=== PATIENT | female | born 1965 | race Caucasian/White ===

== ENCOUNTER 2023-06-24 11:22 | Outpatient (AMB) | payer OTHER, SELFPAY ==
--- NOTE | 2023-06-24 11:33 | MHC.PC.OV ---
Vital Signs 06/24/23 11:34 Height 5 ft 6 in Weight 200 lb 2 oz BMI 32.3 BP 120/80 Blood Pressure Location Lt brachial Position Sitting Pulse 98 Pulse Source Pulse Oximeter Pulse Oximetry (%) 96 Oxygen Delivery Method Room Air Intake Visit Reasons: ? [place] [facility] Intake Note: Patient is here with question of pinkeye since this morning, her grandchildren have it. She would like a work note. Medication List - Last Reconciled 06/24/23 by Aakash Azar MD atorvastatin 10 mg PO DAILY lisinopril-hydrochlorothiazide 20-12.5 mg 1 tab PO DAILY metformin 500 mg PO BID Tobacco use date assessed: 06/24/23 Dental Screening Dental Screen Date: 06/24/23 Did you have a dental visit in the last 12 months?: Yes Did you have a dental problem in the last 6 months where you did not have access to dental care?: No Was dental information given to patient?: Patient has dentist HPI ? [place] [facility] HPI Details 57 y/o female presents today with ? pink eye. She reports burning sensation, crusting bilateral eyes. She reports her grandchildren did have pink eye. 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 Cognitive needs: No Hearing needs: No Vision needs: No Review of Systems Const Denies chills, Denies fatigue, Denies fever(s), Denies headache(s) and Denies weakness ENT Denies dizziness and Denies headache(s) Card Denies dyspnea Resp Denies cough, Denies dyspnea, Denies wheezing and Denies other (shortness of breath) Musc Denies numbness and Denies tingling Neuro Denies dizziness, Denies headache(s), Denies numbness, Denies tingling and Denies weakness Psych Denies anxiety and Denies depression Endo Denies fatigue Aller/Immun Denies wheezing Physical exam (Primary Care) Vital Signs: Last Vital Signs Pulse 98 06/24/23 11:34 BP 120/80 06/24/23 11:34 Pulse Ox 96 06/24/23 11:34 Oxygen Delivery Method Room Air 06/24/23 11:34 BMI result Body Mass Index 32.3 Tobacco/Smoking Status: Tobacco use Status Tobacco use date assessed 06/24/23 06/24/23 11:42 Patient Tobacco Use Status Current everyday Tobacco 06/24/23 11:42 e-Cigarette/Vaping Use Never Used 06/24/23 11:42 Const General: well developed; No acute distress Nutritional Appearance: well nourished Orientation/consciousness: patient oriented x3 HENMT Other: mild scleral erythema Head: Yes normocephalic and Yes atraumatic Eyes General: appearance normal, both eyes and all related structures Pupils: Equal, round and reactive pupils present EOM: EOMs intact bilaterally Resp Effort & Inspection: normal respiratory effort Neuro General: patient oriented x3 and gait normal Cranial nerves: Yes Equal, round and reactive pupils present Psych Affect: normal affect Assessment and Plan Assessment & Plan (1) Conjunctivitis: Code(s): H10.9 - Unspecified conjunctivitis Plan: Script?for?ofloxacin?sent Can?use?warm?compresses?for?crusting?in?the?morning.??Cool?compresses?during?the?day?for?irritation?or?itch Avoid?touching?eyes?with?bare?hands?and?wash?hands?frequently. Works?with?the?[facility]?and?I?have?given?her?a?script?for?the?next?2?days Medications: New ofloxacin 0.3% 2 drps ophthalmic (eye) QID 7 days 5 mL 0RF Coding Level of Care Code New Pt Level 3 (24327) Diagnoses Conjunctivitis H10.9
[2023-06-24 11:34] VITALS: BP 120/80; PULSE 98; O2SAT 96; BMI 32.3
== END 2023-06-24 11:48 | disposition home or self-care (01) ==
PROVIDERS: PCP Family Medicine; Visit Provider Family Medicine
DX: H10.9 Unspecified conjunctivitis (principal)
CPT/HCPCS: 99203

== ENCOUNTER 2023-07-16 14:55 | Outpatient (AMB) | payer OTHER, SELFPAY ==
[2023-07-16 15:19] VITALS: BP 122/78; PULSE 95; O2SAT 96; BMI 32.5
--- NOTE | 2023-07-16 15:19 | MHC.PC.OV ---
Vital Signs 07/16/23 15:19 Height 5 ft 6 in Weight 201 lb 8 oz BMI 32.5 BP 122/78 Blood Pressure Location Lt brachial Position Sitting Pulse 95 Pulse Source Pulse Oximeter Pulse Oximetry (%) 96 Oxygen Delivery Method Room Air Intake Visit Reasons: [employer] PERSON/Diabetes Intake Note: Patient is here as a new patient, with dx of diabetes. Allergies No Known Allergies Allergy (Verified 07/16/23 15:21) Tobacco use date assessed: 07/16/23 Dental Screening Dental Screen Date: 06/24/23 HPI [employer] PERSON/Diabetes HPI Details New patient Prior PCP:? Carmelita Franklin Last office visit/CPE: > 1 yr Acute issue(s): Diabetes -A1c today 07/16/23 5.8%. PMHx: HTN, DM2, HLD, Asthma, SurgHx: L knee replacement. Partial colon resection. Tubal lig. FHx: Mom: DM 1, HLD, HTN. Siblings DM SocHx: 1/2 ppd, EtOH: Socially. 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 1. Little interest or pleasure in doing things: not at all 2. Feeling down, depressed, or hopeless: not at all 3. Trouble falling or staying asleep, or sleeping too much: not at all 4. Feeling tired or having little energy: not at all 5. Poor appetite or overeating: not at all 6. Feeling bad about yourself - or that you are a failure or have let yourself or your family down: not at all 7. Trouble concentrating on things, such as reading the newspaper or watching television: not at all 8. Moving or speaking so slowly that other people could have noticed. Or the opposite - being so fidgety or restless that you have been moving around a lot more than usual: not at all 9. Thoughts that you would be better off or of hurting yourself in some way: not at all Total score: 0 Depression Screening Interpretation: Negative Depression Screening Done: Yes 03658 - PHQ-9 Billing: Yes Source: Developed by Drs. Joseph Bashir, Erika Schroeder, Fritz Heredia and colleagues, with an educational jalil from [employer]. AUDIT C Alcohol Use Questionnaire (AUDIT-C) 1. How often do you have a drink containing alcohol?: 2-3 times a week 2. How many drinks containing alcohol do you have on a typical day when you are drinking?: 3 or 4 3. How often do you have six or more drinks on one occasion?: Weekly Total Score: 7 FRANCESCO-7 AMB Questionnaire FRANCESCO-7 Date FRANCESCO - 7 assessed: 07/16/23 Feeling nervous, anxious, or on edge: 0 = Not at all Not being able to stop or control worryin = Not at all Worrying too much about different things: 0 = Not at all Trouble relaxin = Not at all Being so restless that it is hard to sit still: 0 = Not at all Becoming easily annoyed or irritable: 0 = Not at all Feeling afraid as if something awful might happen: 0 = Not at all Total FRANCESCO-7 score (0-4 normal; 5-9 mild; 10-14 moderate; 15-21 severe): 0 Source: Developed by Drs. Joseph Bashir, Erika Schroeder, Fritz Heredia and colleagues, with an educational jalil from [employer]. FRANCESCO-7 Assessment Billing FRANCESCO-7 Assessment Tool: FRANCESCO-7 Assessment 03856 Physical exam (Primary Care) Vital Signs: Last Vital Signs Pulse 95 07/16/23 15:19 BP 122/78 07/16/23 15:19 Pulse Ox 96 07/16/23 15:19 Oxygen Delivery Method Room Air 07/16/23 15:19 BMI result Body Mass Index 32.5 Tobacco/Smoking Status: Tobacco use Status Tobacco use date assessed 07/16/23 07/16/23 15:33 Patient Tobacco Use Status Current everyday Tobacco 07/16/23 15:19 e-Cigarette/Vaping Use Never Used 07/16/23 15:19 PHQ-9: PHQ-9 Score PHQ-9: Total score 0 07/16/23 15:33 Depression Screening Interpretation: Negative Assessment and Plan Assessment & Plan (1) Diabetes: Code(s): E11.9 - Type 2 diabetes mellitus without complications Plan: A1c?5.8%?is?good?control.??Goal?is?less?than?7.0% She?has?been?out?referral?medication?but?her?son?had?been?on?metformin?and?no?longer?needs?it?due?to?significant?weight?loss?so?she?has?been?using?that. Will?get?her?her?own?script?of?metformin?500?mg?b.i.d. Continue?to?work?at?weight?loss We?will?follow (2) Hypertension: Code(s): I10 - Essential (primary) hypertension Plan: Blood?pressure?is?well?controlled?despite?not?being?on?any?medication She?has?a?blood?pressure?monitor?at?home?and?she?will let?me?know?if?blood?pressures?are?rising (3) Hyperlipidemia: Code(s): E78.5 - Hyperlipidemia, unspecified Plan: She?is?on?atorvastatin?10?mg?daily?though?she?has?been?out?of?the?medication. Check?lipid Resume?atorvastatin (4) Smoker: Code(s): F17.200 - Nicotine dependence, unspecified, uncomplicated Plan: Smoking?1/2?pack?per?day. She?is?pre?contemplative?but?I?encouraged?cessation (5) Asthma: Code(s): J45.909 - Unspecified asthma, uncomplicated Plan: Significant?diffuse?wheezing?and?she?has?been?out?of?albuterol?and?Flovent. Will?give?her?a?script?for?albuterol?rescue?inhaler?and?I?am?starting?Symbicort. (6) Laboratory exam ordered as part of routine general medical examination: Code(s): Z00.00 - Encounter for general adult medical examination without abnormal findings Plan: 57-year-old?female?presents?to?establish?care. Check?lab Orders: Orders Microalbumin, Random (w Creat) Today I10 - Essential (primary) hypertension UA and rflx microscopic Today Z00.00 - Encounter for general adult medical examination without abnormal findings Comprehensive [place]. Panel Fast Today Z00.00 - Encounter for general adult medical examination without abnormal findings Lipid Panel Today Z00.00 - Encounter for general adult medical examination without abnormal findings TSH reflex Free T4 Today Z00.00 - Encounter for general adult medical examination without abnormal findings Medications: New budesonide-formoterol 160-4.5 mcg/actuation (Symbicort) 1 inh inhalation BID 30 days 10.2 grams 3RF Changed From atorvastatin 10 mg PO DAILY To atorvastatin 10 mg PO DAILY 90 days 90 tabs 3RF From metformin 500 mg PO BID To metformin 500 mg PO BID 90 days 180 tabs 3RF Coding Level of Care Code New Pt Level 3 (71113) Diagnoses Diabetes E11.9 Hypertension I10 Hyperlipidemia E78.5 Smoker F17.200 Asthma J45.909 Laboratory exam ordered as part of routine general medical examination Z00.00 Additional Codes FRANCESCO-7 Assessment Billing - FRANCESCO-7 Assessment Tool: FRANCESCO-7 Assessment [id number] ([id number])
== END 2023-07-16 16:15 | disposition home or self-care (01) ==
PROVIDERS: PCP Family Medicine; Visit Provider Family Medicine
DX: E11.69 Type 2 diabetes mellitus with other specified complication (principal); I10 Essential (primary) hypertension; E78.5 Hyperlipidemia, unspecified; F17.210 Nicotine dependence, cigarettes, uncomplicated; J45.909 Unspecified asthma, uncomplicated
CPT/HCPCS: 83036; 99213

== ENCOUNTER 2023-09-22 08:19 | Outpatient (REF) | payer OTHER, SELFPAY ==
[2023-09-22 11:24] LABS: Appearance Urine Cloudy; Color Urine Yellow; Glucose Urine UA Negative (Negative); Leukocyte Esterase Urine Moderate (2+) (Negative); Nitrite Urine Negative (Negative); UMIC TRIGGER UA YES; Urine Blood Large (3+) (Negative); Urine Ketones Negative (Negative); Urine Protein Trace mg/dL (Neg-Trace)
[2023-09-22 11:34] LABS: Bacteria Urine 2+ (None Seen); Hyaline Casts Urine 0-2 /LPF (0-2); Squamous Epithelial Cell Urine >20 /HPF (0-2); WBC Urine 21-50 /HPF (0-5)
[2023-09-22 11:47] LABS: Alanine Aminotransferase 58 U/L (0-31); Alkaline Phosphatase 52 U/L (39-117); Anion Gap 15 (12-20); Aspartate Amino Transferase 34 U/L (5-31); Bilirubin Total 0.8 mg/dL (0.0-1.0); Blood Urea Nitrogen 21 mg/dL (9-16); Calcium 8.8 mg/dL (8.4-10.2); Carbon Dioxide 26 mmol/L (22-29); Chloride 103 mmol/L (96-108); Cholesterol 158 mg/dL (<200); Estimated Glomerular Filt Rate > 60; Glucose Fasting 131 mg/dL (60-99); HDL Cholesterol 57 mg/dL (>40); LDL Cholesterol Calculated 68 mg/dL (<100); Potassium 3.8 mmol/L (3.3-5.1); Sodium 140 mmol/L (135-145); Total Protein 6.9 g/dL (6.5-8.0); Triglycerides 165 mg/dL (<150)
[2023-09-22 11:59] LABS: TSH reflex Free T4 1.47 uIU/mL (0.32-4.0)
[2023-09-22 12:20] LABS: Creatinine Urine 249.06 mg/dL; Microalbum/Creatinine Ratio Ur 21.2 ug/mg cr (<30)
== END 2023-09-22 08:20 | disposition home or self-care (01) ==
LOC: HO.WFDLDS 08:19
PROVIDERS: Visit Provider Family Medicine
DX: Z00.00 Encounter for general adult medical examination without abnormal findings (principal); I10 Essential (primary) hypertension
CPT/HCPCS: 36415; 80053; 80061; 81001; 82043; 82570; 84443

== ENCOUNTER 2023-10-06 08:34 | Outpatient (AMB) | payer OTHER, SELFPAY ==
--- NOTE | 2023-10-06 08:35 | A.OFFPC_ITS ---
Vital Signs 10/06/23 08:37 Height 5 ft 6 in Weight 204 lb 6 oz BMI 33.0 BP 128/86 Blood Pressure Location Rt brachial Position Sitting Pulse 83 Pulse Source Pulse Oximeter Pulse Oximetry (%) 96 Oxygen Delivery Method Room Air Intake Visit Reasons: CPE with f/u labs and health maint Intake Note: Divya is a 58 year old female who presents to the office today for a CPE with f/u labs and health maintenance. Pt states she still thinks she has a UTI because she has burning with urination and urgency. Allergies No Known Allergies Allergy (Verified 10/06/23 08:39) Medication List - Last Reconciled 10/06/23 by Aakash Azar MD albuterol sulfate 90 mcg/actuation 2 puffs inhalation Q6H PRN atorvastatin 10 mg PO DAILY 90 days blood sugar diagnostic (FreeStyle Lite Strips) DX: E11.9, test blood sugar 2 times a day, 90 days budesonide-formoterol 160-4.5 mcg/actuation (Symbicort) 1 inh inhalation BID 30 days lisinopril-hydrochlorothiazide 20-12.5 mg 1 tab PO DAILY metformin 500 mg PO BID 90 days nitrofurantoin monohyd/m-cryst 100 mg (Macrobid) 100 mg PO BID 7 days Tobacco use date assessed: 10/06/23 Dental Screening Dental Screen Date: 06/24/23 Did you have a dental visit in the last 12 months?: Yes Did you have a dental problem in the last 6 months where you did not have access to dental care?: No Was dental information given to patient?: Patient has dentist HPI CPE with f/u labs and health maint HPI Details 58 y/o female presents for a CPE with f/ u labs and health maintenance. Labs were drawn 09/22/23. Reviewed labs with pt. Elevated liver enzymes - AST 34, ALT 58. She notes she has been told she had fatty liver disorder before. Triglycerides 165. TC 158. LDL 68. HDL 57. TSH 1.47. 2+ urine bacteria seen. 3+ urine blood. Elevated fasting glucose of 131 and last A1c 07/16/23 5.8%. She is on metformin 500mg b.i.d. Pt reports urinary symptoms. Blood pressure today 128/86. She is on lisinopril-hydrochlorothiazide 20-12.5mg daily. Pt reports hearing changes. 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 1. Little interest or pleasure in doing things: not at all 2. Feeling down, depressed, or hopeless: not at all 3. Trouble falling or staying asleep, or sleeping too much: not at all 4. Feeling tired or having little energy: not at all 5. Poor appetite or overeating: not at all 6. Feeling bad about yourself - or that you are a failure or have let yourself or your family down: not at all 7. Trouble concentrating on things, such as reading the newspaper or watching television: not at all 8. Moving or speaking so slowly that other people could have noticed. Or the opposite - being so fidgety or restless that you have been moving around a lot more than usual: not at all 9. Thoughts that you would be better off or of hurting yourself in some way: not at all Total score: 0 Depression Screening Interpretation: Negative Depression Screening Done: Yes 13736 - PHQ-9 Billing: Yes Source: Developed by Drs. Joseph Bashir, Erika Schroeder, Fritz Heredia and colleagues, with an educational jalil from [employer]. Thrive Questionnaire Date Thrive assessed: 10/06/23 I am a: Patient What is your living situation today?: I have a steady place to live Within the past 12 months, did the food you bought not last and you didn't have the money to get more?: Never true Within the past 12 months, did you worry whether your food would run out before you got money to buy more?: Never true Do you have trouble paying for medicines?: No Do you have trouble getting transportation to medical appointments?: No Do you have trouble paying your heating and electricity bill?: No Do you have trouble taking care of your child, family member or friend?: No Do you have trouble with day-to-day activities such as bathing, preparing meals, shopping, managing finances, etc.?: No Are you currently unemployed and looking for a job?: No Are you interested in more education?: No THRIVE Score: 0 AUDIT C Alcohol Use Questionnaire (AUDIT-C) 1. How often do you have a drink containing alcohol?: 2-3 times a week 2. How many drinks containing alcohol do you have on a typical day when you are drinking?: 3 or 4 3. How often do you have six or more drinks on one occasion?: Weekly Total Score: 7 FRANCESCO-7 AMB Questionnaire FRANCESCO-7 Date FRANCESCO - 7 assessed: 07/16/23 Feeling nervous, anxious, or on edge: 0 = Not at all Not being able to stop or control worryin = Not at all Worrying too much about different things: 0 = Not at all Trouble relaxin = Not at all Being so restless that it is hard to sit still: 0 = Not at all Becoming easily annoyed or irritable: 0 = Not at all Feeling afraid as if something awful might happen: 0 = Not at all Total FRANCESCO-7 score (0-4 normal; 5-9 mild; 10-14 moderate; 15-21 severe): 0 Source: Developed by Drs. Joseph Bashir, Erika Schroeder, Fritz Heredia and colleagues, with an educational jalil from [employer]. FRANCESCO-7 Assessment Billing FRANCESCO-7 Assessment Tool: FRANCESCO-7 Assessment 03045 Review of Systems Const Denies chills, Denies fatigue, Denies fever(s), Denies headache(s) and Denies weakness Eyes Denies change in vision ENT Denies dizziness, Denies headache(s), Denies hearing loss, Denies nasal congestion, Denies sinus pain, Denies sinus pressure and Denies sore throat Card Denies chest pain, Denies lightheadedness, Denies dyspnea and Denies other (palpitations) Resp Denies cough, Denies dyspnea and Denies wheezing GI Denies abdominal pain, Denies melena, Denies hematochezia, Denies change in bowel habits, Denies dyspepsia and Denies nausea Denies hematuria and Denies dysuria Musc Denies abnormal gait, Denies myalgias, Denies arthralgias, Denies numbness and Denies tingling Skin/Breast Denies rash, Denies unusual bruising and Denies wounds Neuro Denies abnormal gait, Denies dizziness, Denies headache(s), Denies memory loss, Denies numbness, Denies Sensory deficit (Neuro), Denies tingling and Denies weakness Psych Denies anxiety, Denies depression and Denies memory loss Endo Denies cold intolerance, Denies fatigue, Denies heat intolerance, Denies polydipsia and Denies polyuria Ramos/Lymph Denies easy bleeding and Denies easy bruising Aller/Immun Denies wheezing Physical exam (Primary Care) Vital Signs: Last Vital Signs Pulse 83 10/06/23 08:37 BP 128/86 10/06/23 08:37 Pulse Ox 96 10/06/23 08:37 Oxygen Delivery Method Room Air 10/06/23 08:37 BMI result Body Mass Index 33.0 Tobacco/Smoking Status: Tobacco use Status Tobacco use date assessed 10/06/23 10/06/23 08:42 Patient Tobacco Use Status Current everyday Tobacco 10/06/23 08:35 e-Cigarette/Vaping Use Never Used 10/06/23 08:35 PHQ-9: PHQ-9 Score PHQ-9: Total score 0 10/06/23 08:53 Depression Screening Interpretation: Negative Thrive Assessment: Date of Thrive Assessment Date Thrive assessed 10/06/23 10/06/23 08:42 Const General: no acute distress, well developed, alert and awake Nutritional Appearance: well nourished Orientation/consciousness: patient oriented x3 HENMT Head: Yes normocephalic and Yes atraumatic Ears: hearing grossly normal bilaterally and TM's normal bilaterally General nose exam: Normal external nose present and Normal nares present Mouth: Normal oral and palatal mucosa present and moist mucous membranes Teeth and gingiva: dentition normal Throat: Yes posterior oropharynx normal Eyes General: appearance normal, both eyes and all related structures Pupils: Equal, round and reactive pupils present and Pupil accommodation reflex normal EOM: EOMs intact bilaterally Neck Neck: Yes normal visual inspection, Yes no lymphadenopathy and Yes trachea midline Thyroid: Thyroid normal Carotids: no bruits Lymphatic: no lymphadenopathy noted Chest Chest palpation & inspection: normal inspection of the chest Resp Effort & Inspection: normal respiratory effort Auscultation: clear to auscultation bilaterally Cardio Rate: regular rate Rhythm: regular rhythm Heart sounds: S1 normal heart sound present, S2 normal heart sound present, no gallops, no murmurs and no rubs Bruits: no abdominal aortic bruits and no carotid bruits GI Other: Ventral abdominal mass at level of umbillicus with mild impulse at valsalva Palpation (GI): No Abdominal aortic bruit present, Soft to palpation, nontender, No hepatosplenomegaly present and No Rebound tenderness present Auscultation: normal bowel sounds General: Yes no CVA tenderness Back/Spine/Pelvis Back: no CVA tenderness Cervical Spine: cervical ROM normal and No Cervical spine tenderness Thoracic/Lumbar Spine: thoraco-lumbar ROM normal, No pain with thoraco-lumbar ROM, No thoracic spinal tenderness and No lumbar spinal tenderness Skin Lesions: no lesions Rashes: no rashes Trauma: no lacerations or abrasions Wounds: no wounds Nails: normal Neuro General: patient oriented x3 Cranial nerves: Yes Equal, round and reactive pupils present Cognition (Neuro): normal cognition Gait exam (Neuro): Normal gait present Motor exam (neuro): 5/5 motor strength present throughout Sensory Exam: No Sensory deficit (Neuro) Deep tendon reflexes (DTR's): Right patellar reflex intensity grade: 2+ and Left patellar reflex intensity grade: 2+ Extrem General: Yes normal to inspection and No edema Psych Appearance: grossly normal Affect: normal affect Attitude: cooperative Thought process: Normal thought process present Results AMB Urinalysis, Automated UA Leukoctes 125 Goldie/uL Last Edit by Santa Pal CMA on 10/06/23 08:56 UA Nitrite Negative Last Edit by Santa Pal CMA on 10/06/23 08:56 UA Urobilinogen 0 mg/dL Last Edit by Santa Pal CMA on 10/06/23 08:56 UA Protein 15 mg/dL Last Edit by Santa Pal CMA on 10/06/23 08:56 UA pH 6.0 Last Edit by Santa Pal CMA on 10/06/23 08:56 UA Blood 0 Mitesh/uL Last Edit by Santa Pal CMA on 10/06/23 08:56 UA Specific [place] 1.025 Last Edit by Santa Pal CMA on 10/06/23 08:56 UA Ketone Positive Last Edit by Santa Pal CMA on 10/06/23 08:56 UA Bilirubin 1 mg/dL Last Edit by Santa Pal CMA on 10/06/23 08:56 UA Glucose 0 mg/dL Last Edit by Santa Pal CMA on 10/06/23 08:56 Results Reviewed Results Reviewed: Laboratory Last Values Urine pH (Auto) 6.0 10/06/23 08:54 Specific [place] (Auto) 1.025 10/06/23 08:54 Urine Protein (Auto) 15 mg/dL 10/06/23 08:54 Glucose (UA)(Auto) 0 mg/dL 10/06/23 08:54 Urine Ketones (Auto) Positive 10/06/23 08:54 Urine Blood (Auto) 0 Mitesh/uL 10/06/23 08:54 Urine Nitrite (Auto) Negative 10/06/23 08:54 Urine Bilirubin (Auto) 1 mg/dL 10/06/23 08:54 Urine Urobilinogen (Auto) 0 mg/dL 10/06/23 08:54 Leukocyte Esterase (Auto) 125 Goldie/uL 10/06/23 08:54 Assessment and Plan Assessment & Plan (1) Adult general medical exam: Code(s): Z00.00 - Encounter for general adult medical examination without abnormal findings Plan: 58-year-old?female?presents?for?complete?physical?exam (2) Diabetes: Code(s): E11.9 - Type 2 diabetes mellitus without complications Plan: A1c?at?last?check?showed?good?control. Morning?blood?sugar?shows?ongoing?control Continue?metformin?as?prescribed Encouraged?weight?loss (3) Elevated liver enzymes: Code(s): R74.8 - Abnormal levels of other serum enzymes Plan: Mildly?elevated?liver?enzymes. Patient?has?been?gaining?weight?and?notes?that?she?has?been?told?that?she?has?he patic?steatosis Will?recheck?liver?enzymes?in?a?few?months.??Advised?weight?loss (4) Hyperlipidemia: Code(s): E78.5 - Hyperlipidemia, unspecified Plan: She?is?taking?atorvastatin?as?prescribed Lipids?are?well?controlled?except?mildly?elevated?triglycerides.??Encouraged?ketty ght?loss?and?blood?sugar?control (5) Change in hearing: Code(s): H91.90 - Unspecified hearing loss, unspecified ear Plan: Referred?for?audiology?testing (6) Hypertension: Code(s): I10 - Essential (primary) hypertension Plan: Blood?pressure?fairly?well?controlled?without?medication. Will?continue?to?monitor (7) Abdominal mass: Code(s): R19.00 - Intra-abdominal and pelvic swelling, mass and lump, unspecified site Plan: Patient?has?ventral?abdominal?mass?at?level?of?umbilicus?with?mild?impulse?on?Va lsalva Check?ultrasound?to?rule?out?hernia (8) UTI (urinary tract infection): Code(s): N39.0 - Urinary tract infection, site not specified Plan: Ongoing?dysuria She?completed?a?script?for?Bactrim?and?says?this?improves?things?at?1st?but?symp toms?have?resumed Will?give?her?a?script?for?nitrofurantoin. Will?send?urine?for?culture?and?sensitivities If?still?not?improving?will?consider?a?referral?to?urology (9) Screening for cervical cancer: Code(s): Z12.4 - Encounter for screening for malignant neoplasm of cervix Plan: Referred?to?OBGYN (10) Breast cancer screening by mammogram: Code(s): Z12.31 - Encounter for screening mammogram for malignant neoplasm of breast Plan: Due?for?mammogram-ordered Orders: Orders AMB Urinalysis Automated Today Z13.9 - Encounter for screening, unspecified MM tomosynthesis screening BI Today Z12.31 - Encounter for screening mammogram for malignant neoplasm of breast Urine Culture Today N39.0 - Urinary tract infection, site not specified US abdomen limited Today R19.00 - Intra-abdominal and pelvic swelling, mass and lump, unspecified site Comprehensive [place]. Panel Fast Today R74.8 - Abnormal levels of other serum enzymes, Z00.00 - Encounter for general adult medical examination without abnormal findings UA and rflx microscopic Today N39.0 - Urinary tract infection, site not specified, Z00.00 - Encounter for general adult medical examination without abnormal findings Referrals Audiology Referral H91.90 - Unspecified hearing loss, unspecified ear Ophthalmology Referral E11.9 - Type 2 diabetes mellitus without complications [facility] Referral Z12.4 - Encounter for screening for malignant neoplasm of cervix Medications: New nitrofurantoin monohyd/m-cryst 100 mg (Macrobid) must administer with a meal/food 100 mg PO BID 7 days 14 caps 0RF R74.8 - Abnormal levels of other serum enzymes blood sugar diagnostic (FreeStyle Lite Strips) DX: E11.9, test blood sugar 2 times a day, 90 days 200 ea 4RF E11.9 - Type 2 diabetes mellitus without complications Coding Level of Care Code Est Pt Level 4 (32818) Est Pt Prev Care 40-64y(12486) Diagnoses Adult general medical exam Z00.00 Diabetes E11.9 Elevated liver enzymes R74.8 Hyperlipidemia E78.5 Change in hearing H91.90 Hypertension I10 Abdominal mass R19.00 UTI (urinary tract infection) N39.0 Screening for cervical cancer Z12.4 Breast cancer screening by mammogram Z12.31 Additional Codes FRANCESCO-7 Assessment Billing - FRANCESCO-7 Assessment Tool: FRANCESCO-7 Assessment 40146 ([id number])
[2023-10-06 08:37] VITALS: BP 128/86; PULSE 83; O2SAT 96; BMI 33.0
== END 2023-10-06 09:16 | disposition home or self-care (01) ==
PROVIDERS: PCP Family Medicine; Visit Provider Family Medicine
DX: Z00.00 Encounter for general adult medical examination without abnormal findings (principal); E11.9 Type 2 diabetes mellitus without complications; R74.8 Abnormal levels of other serum enzymes; E78.5 Hyperlipidemia, unspecified; H91.90 Unspecified hearing loss, unspecified ear; I10 Essential (primary) hypertension; R19.00 Intra-abdominal and pelvic swelling, mass and lump, unspecified site; N39.0 Urinary tract infection, site not specified
CPT/HCPCS: 81003; 99214; 99396

== ENCOUNTER 2023-10-06 09:17 | Outpatient (REF) | payer OTHER, SELFPAY ==
[2023-10-06 12:30] LABS: Appearance Urine Turbid; Color Urine Dark Yellow; Glucose Urine UA Negative (Negative); Leukocyte Esterase Urine Moderate (2+) (Negative); Nitrite Urine Negative (Negative); PH 5.5 (5.0-9.0); Specific Gravity - Urine 1.025 (1.005-1.025); UMIC TRIGGER UA YES; Urine Blood Negative (Negative); Urine Ketones Trace mg/dL (Negative); Urine Protein Trace mg/dL (Neg-Trace)
[2023-10-06 12:43] LABS: Bacteria Urine 1+ (None Seen); Hyaline Casts Urine 0-2 /LPF (0-2); RBC Urine 0-2 /HPF (0-2); Squamous Epithelial Cell Urine >20 /HPF (0-2)
== END 2023-10-06 09:18 | disposition home or self-care (01) ==
LOC: HO.LAB 09:17
PROVIDERS: Visit Provider Family Medicine
DX: N39.0 Urinary tract infection, site not specified (principal)
CPT/HCPCS: 81001; 87086

== ENCOUNTER 2023-11-04 15:04 | Outpatient (REF) | payer OTHER, SELFPAY | END 2023-11-04 15:05 | disposition home or self-care (01) | LOC: HO.SH 15:04 | PROVIDERS: Visit Provider Family Medicine | DX: Z01.118 Encounter for examination of ears and hearing with other abnormal findings (principal); H90.3 Sensorineural hearing loss, bilateral | CPT/HCPCS: 92557; 92567 ==

== ENCOUNTER 2024-01-14 08:34 | Outpatient (AMB) | payer OTHER, SELFPAY ==
[2024-01-14 08:58] VITALS: BP 126/80; PULSE 87; RESP 14; TEMP 36.8; O2SAT 95; BMI 33.8
--- NOTE | 2024-01-14 08:58 | A.OFFPC_ITS ---
Vital Signs 01/14/24 08:58 Height 5 ft 6 in Weight 209 lb 4 oz BMI 33.8 BP 126/80 Blood Pressure Location Lt brachial Position Sitting Respiration 14 Pulse 87 Pulse Source Pulse Oximeter Temp 98.2 F Temp Source Oral Pulse Oximetry (%) 95 Oxygen Delivery Method Room Air Intake Visit Reasons: f/u elevated liver enzymes, diabetes Intake Note: f/u for DM elevated liver enzymes Allergies No Known Allergies Allergy (Verified 01/14/24 09:00) Medication List - Last Reconciled 01/14/24 by Aakash Azar MD albuterol sulfate 90 mcg/actuation 2 puffs inhalation Q6H PRN atorvastatin 10 mg PO DAILY 90 days blood sugar diagnostic (FreeStyle Lite Strips) DX: E11.9, test blood sugar 2 times a day, 90 days budesonide-formoterol 160-4.5 mcg/actuation (Symbicort) 1 inh inhalation BID 30 days lisinopril-hydrochlorothiazide 20-12.5 mg 1 tab PO DAILY metformin 500 mg PO BID 90 days nitrofurantoin monohyd/m-cryst 100 mg (Macrobid) 100 mg PO BID 7 days Tobacco use date assessed: 10/06/23 Dental Screening Dental Screen Date: 06/24/23 HPI f/u elevated liver enzymes, diabetes HPI Details 58 y/o female presents to f/u elevated l iver enzymes, diabetes, ? ventral hernia. No recent labs to review. A1c today 01/14/24 is 6.2%. Would like to trial ozempic as she feels her blood sugars are all over the place. Notes she had a colonoscopy within the last 5 years. 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 1. Little interest or pleasure in doing things: not at all 2. Feeling down, depressed, or hopeless: not at all 3. Trouble falling or staying asleep, or sleeping too much: not at all 4. Feeling tired or having little energy: not at all 5. Poor appetite or overeating: not at all 6. Feeling bad about yourself - or that you are a failure or have let yourself or your family down: not at all 7. Trouble concentrating on things, such as reading the newspaper or watching television: not at all 8. Moving or speaking so slowly that other people could have noticed. Or the opposite - being so fidgety or restless that you have been moving around a lot more than usual: not at all 9. Thoughts that you would be better off or of hurting yourself in some way: not at all Total score: 0 Source: Developed by Drs. Joseph Bashir, Erika Schroeder, Fritz Heredia and colleagues, with an educational jalil from [employer]. Thrive Questionnaire Date Thrive assessed: 10/06/23 I am a: Patient What is your living situation today?: I choose not to answer this question Within the past 12 months, did the food you bought not last and you didn't have the money to get more?: Sometimes True Within the past 12 months, did you worry whether your food would run out before you got money to buy more?: Sometimes True Do you have trouble paying for medicines?: Yes Do you have trouble getting transportation to medical appointments?: No Do you have trouble paying your heating and electricity bill?: I choose not to answer this question Do you have trouble taking care of your child, family member or friend?: I choose not to answer this question Do you have trouble with day-to-day activities such as bathing, preparing meals, shopping, managing finances, etc.?: No Are you currently unemployed and looking for a job?: No Are you interested in more education?: No Please select the resources that you would like help with: None Currently or been in a relationship where the following occur: No concerns reported THRIVE Score: 2 AUDIT C Alcohol Use Questionnaire (AUDIT-C) 1. How often do you have a drink containing alcohol?: 2-3 times a week 2. How many drinks containing alcohol do you have on a typical day when you are drinking?: 1 or 2 3. How often do you have six or more drinks on one occasion?: Never Total Score: 3 FRANCESCO-7 AMB Questionnaire FRANCESCO-7 Date FRANCESCO - 7 assessed: 07/16/23 Feeling nervous, anxious, or on edge: 0 = Not at all Not being able to stop or control worryin = Not at all Worrying too much about different things: 0 = Not at all Trouble relaxin = Not at all Being so restless that it is hard to sit still: 0 = Not at all Becoming easily annoyed or irritable: 0 = Not at all Feeling afraid as if something awful might happen: 0 = Not at all Total FRANCESCO-7 score (0-4 normal; 5-9 mild; 10-14 moderate; 15-21 severe): 0 Source: Developed by Drs. Joseph Bashir, Erika Schroeder, Fritz Heredia and colleagues, with an educational jalil from [employer]. Review of Systems Const Denies chills, Denies fatigue, Denies fever(s), Denies headache(s) and Denies weakness ENT Denies dizziness and Denies headache(s) Card Denies chest pain, Denies lightheadedness, Denies dyspnea and Denies other (Palpitations) Resp Denies cough, Denies dyspnea, Denies wheezing and Denies other ( shortness of breath) Musc Denies numbness and Denies tingling Neuro Denies dizziness, Denies headache(s), Denies numbness, Denies tingling, Denies paresthesias and Denies weakness Psych Denies anxiety and Denies depression Endo Denies fatigue Aller/Immun Denies wheezing Physical exam (Primary Care) Vital Signs: Last Vital Signs Temp 98.2 F 01/14/24 08:58 Pulse 87 01/14/24 08:58 Resp 14 01/14/24 08:58 BP 126/80 01/14/24 08:58 Pulse Ox 95 01/14/24 08:58 Oxygen Delivery Method Room Air 01/14/24 08:58 BMI result Body Mass Index 33.8 Tobacco/Smoking Status: Tobacco use Status Tobacco use date assessed 10/06/23 01/14/24 09:00 Patient Tobacco Use Status Current everyday Tobacco 01/14/24 09:00 e-Cigarette/Vaping Use Never Used 01/14/24 09:00 PHQ-9: PHQ-9 Score PHQ-9: Total score 0 01/14/24 09:10 Thrive Assessment: Date of Thrive Assessment Date Thrive assessed 10/06/23 01/14/24 09:00 Currently or been in a relationship where the following occur: No concerns reported Const General: no acute distress and well developed Nutritional Appearance: well nourished Orientation/consciousness: patient oriented x3 HENMT Head: Yes normocephalic and Yes atraumatic Eyes General: appearance normal, both eyes and all related structures Pupils: Equal, round and reactive pupils present EOM: EOMs intact bilaterally Resp Effort & Inspection: normal respiratory effort Auscultation: clear to auscultation bilaterally Cardio Rate: regular rate Rhythm: regular rhythm Heart sounds: S1 normal heart sound present, S2 normal heart sound present, no gallops, no murmurs and no rubs Neuro General: patient oriented x3 and gait normal Cranial nerves: Yes Equal, round and reactive pupils present Psych Affect: normal affect Coding Level of Care Code Est Pt Level 4 (16096) Diagnoses Hypertension I10 Diabetes E11.9 Elevated liver enzymes R74.8 Abdominal mass R19.00 Screening for colon cancer Z12.11 Diabetic retinopathy E11.319 Assessment & Plan Assessment & Plan (1) Hypertension: Code(s): I10 - Essential (primary) hypertension Category: Medical Plan: Blood?pressure?is?controlled Goal?is?less?than?140/90 Continue?current?regimen (2) Diabetes: Code(s): E11.9 - Type 2 diabetes mellitus without complications Category: Medical Plan: A1c?climbed?but?is?still?at?goal?of?less?than?7.0% Patient?would?like?to?try?Ozempic. Sent?script.??She?is?followed?by?Ophthalmology?and?should?be?monitored?for?retin opathy. (3) Elevated liver enzymes: Code(s): R74.8 - Abnormal levels of other serum enzymes Category: Medical Plan: Elevated?liver?enzymes. Patient?has?not?had?repeat?labs?drawn?but?will?do?so?today?and?we?can?follow- up?in?about?a?month (4) Abdominal mass: Code(s): R19.00 - Intra-abdominal and pelvic swelling, mass and lump, unspecified site Category: Medical Plan: Had?ordered?ultrasound?to?evaluate?for?ventral?hernia Gave?her?the?number?for?centralized?scheduling?as?she?has?not?been?scheduled?yet . (5) Screening for colon cancer: Code(s): Z12.11 - Encounter for screening for malignant neoplasm of colon Category: Medical Plan: Patient?says?she?had?a?colonoscopy?about?5?years?ago Requesting?report (6) Diabetic retinopathy: Code(s): E11.319 - Type 2 diabetes mellitus with unspecified diabetic retinopathy without macular edema Category: Medical Plan: Discussed?with?patient?that?we?should?Work?at?tighter?blood?sugar?control She?would?like?to?try?Ozempic.??She?should?be?monitored?closely?on?this?medicati on. Medications: New semaglutide (Ozempic) for 4 weeks 0.25 mg (0.368 mL) subcut QWEEK 28 days 1.472 mL 1RF E11.9 - Type 2 diabetes mellitus without complications semaglutide (Ozempic) for 4 weeks 0.25 mg (0.368 mL) subcut QWEEK 28 days 1.472 mL 1RF E11.9 - Type 2 diabetes mellitus without complications
== END 2024-01-14 09:29 | disposition home or self-care (01) ==
LOC: HO.HMCFM 08:35
PROVIDERS: PCP Family Medicine; Visit Provider Family Medicine
DX: I10 Essential (primary) hypertension (principal); E11.319 Type 2 diabetes mellitus with unspecified diabetic retinopathy without macular edema; R74.8 Abnormal levels of other serum enzymes; R19.00 Intra-abdominal and pelvic swelling, mass and lump, unspecified site; Z12.11 Encounter for screening for malignant neoplasm of colon

== ENCOUNTER → 2024-01-14 08:34 | Outpatient (BNVA) | payer OTHER, SELFPAY | PROVIDERS: PCP Family Medicine; Visit Provider Family Medicine | DX: I10 Essential (primary) hypertension (principal); E11.9 Type 2 diabetes mellitus without complications; R84.7 Abnormal histological findings in specimens from respiratory organs and thorax; R19.00 Intra-abdominal and pelvic swelling, mass and lump, unspecified site; E11.319 Type 2 diabetes mellitus with unspecified diabetic retinopathy without macular edema | CPT/HCPCS: 83036; 96127; 99212 ==

== ENCOUNTER 2024-01-14 09:45 | Outpatient (REF) | payer OTHER, SELFPAY ==
[2024-01-14 11:31] LABS: Appearance Urine Turbid; Color Urine Dark Yellow; Glucose Urine UA Negative (Negative); Leukocyte Esterase Urine Small (1+) (Negative); Nitrite Urine Negative (Negative); Specific Gravity - Urine 1.025 (1.005-1.025); UMIC TRIGGER UA YES; Urine Blood Negative (Negative); Urine Ketones Trace mg/dL (Negative); Urine Protein 30 (1+) mg/dL (Neg-Trace)
[2024-01-14 11:39] LABS: Bacteria Urine 2+ (None Seen); Hyaline Casts Urine 0-2 /LPF (0-2); RBC Urine 0-2 /HPF (0-2); Squamous Epithelial Cell Urine >20 /HPF (0-2)
[2024-01-14 12:23] LABS: Alanine Aminotransferase 71 U/L (0-31); Albumin Level 4.2 g/dL (3.5-5.0); Alkaline Phosphatase 49 U/L (39-117); Anion Gap 16 (12-20); Aspartate Amino Transferase 46 U/L (5-31); Bilirubin Total 0.5 mg/dL (0.0-1.0); Blood Urea Nitrogen 18 mg/dL (9-16); Calcium 9.9 mg/dL (8.4-10.2); Carbon Dioxide 27 mmol/L (22-29); Chloride 105 mmol/L (96-108); Estimated Glomerular Filt Rate > 60; Glucose Fasting 114 mg/dL (60-99); Sodium 144 mmol/L (135-145); Total Protein 7.2 g/dL (6.5-8.0)
== END 2024-01-14 09:46 | disposition home or self-care (01) ==
LOC: HO.WFDLDS 09:45
PROVIDERS: Visit Provider Family Medicine
DX: Z00.00 Encounter for general adult medical examination without abnormal findings (principal); R74.8 Abnormal levels of other serum enzymes; N39.0 Urinary tract infection, site not specified
CPT/HCPCS: 36415; 80053; 81001

== ENCOUNTER 2024-01-27 08:35 | Outpatient (REF) | payer OTHER, SELFPAY ==
--- NOTE | ~2024-01-27 | US_ITS ---
EXAMINATION: US ABDOMEN LIMITED CLINICAL INFORMATION: Intra-abdominal and pelvic swelling, mass and lump, unspecified. Ventral mass to the left of midline at level of umbilicus with mild impulse on Valsalva. Evaluate for hernia. COMPARISON: None available. TECHNIQUE: Real-time imaging of the region of concern in the left lower quadrant. FINDINGS: Echogenic material protruding from the abdomen into the left lower quadrant most likely hernia roughly measure 4.3 cm. Evaluation is limited, cannot rule out presence of bowel, this could be further assessed with follow-up cross-sectional imaging CT scan. US/US abdomen limited IMPRESSION: Echogenic material protruding from the abdomen into the left lower quadrant most likely hernia. This could be further assessed with follow-up cross-sectional imaging CT scan to rule out herniated bowel Surgical evaluation is warranted.. Electronically signed by: Silvestre Dubon MD 03/02/2024 06:04 AM SEBASTIAN
== END 2024-01-27 08:36 | disposition home or self-care (01) ==
LOC: HO.HMGCX 08:35
PROVIDERS: PCP Family Medicine; Visit Provider Family Medicine
DX: R19.00 Intra-abdominal and pelvic swelling, mass and lump, unspecified site (principal)
CPT/HCPCS: 76705

== ENCOUNTER 2024-02-12 09:21 | Outpatient (AMB) | payer OTHER, SELFPAY ==
--- NOTE | 2024-02-12 09:17 | A.OFFPC_ITS ---
Intake Visit Reasons: f/u liver enzymes via telemedicine Intake Note: lab review Allergies No Known Allergies Allergy (Verified 02/12/24 09:17) Tobacco use date assessed: 10/06/23 Dental Screening Dental Screen Date: 06/24/23 HPI f/u liver enzymes via telemedicine HPI Details Labs drawn 01/14/24. Reviewed labs with pt. Ongoing liver enzymes. AST 46. ALT 71. 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 Cognitive needs: No Hearing needs: No Vision needs: No Questionnaire Thrive Questionnaire Date Thrive assessed: 01/07/24 I am a: Patient What is your living situation today?: I choose not to answer this question Within the past 12 months, did the food you bought not last and you didn't have the money to get more?: Sometimes True Within the past 12 months, did you worry whether your food would run out before you got money to buy more?: Sometimes True Do you have trouble paying for medicines?: Yes Do you have trouble getting transportation to medical appointments?: No Do you have trouble paying your heating and electricity bill?: I choose not to answer this question Do you have trouble taking care of your child, family member or friend?: I choose not to answer this question Do you have trouble with day-to-day activities such as bathing, preparing meals, shopping, managing finances, etc.?: No Are you currently unemployed and looking for a job?: No Are you interested in more education?: No Please select the resources that you would like help with: None Currently or been in a relationship where the following occur: No concerns reported THRIVE Score: 2 FRANCESCO-7 AMB Questionnaire FRANCESCO-7 Date FRANCESCO - 7 assessed: 07/16/23 Source: Developed by Drs. Joseph Bashir, Erika Schroeder, Fritz Heredia and colleagues, with an educational jalil from [employer]. Physical exam (Primary Care) Tobacco/Smoking Status: Tobacco use Status Tobacco use date assessed 10/06/23 02/12/24 09:19 Patient Tobacco Use Status Current everyday Tobacco 02/12/24 09:19 e-Cigarette/Vaping Use Never Used 02/12/24 09:19 Thrive Assessment: Date of Thrive Assessment Date Thrive assessed 01/07/24 02/12/24 09:19 Currently or been in a relationship where the following occur: No concerns reported Telehealth Telehealth Telehealth Platform: Telephone Location of provider rendering services: practice address Location of patient: address on file Patient Identification confirmed using: Name, : Yes Telehealth method: voice only Patient verbally consented to treatment: Yes Patient verbally consented to billing insurance company: Yes Patient informed of any privacy concerns related to visit: Yes Coding Level of Care Code Tele Est Pt Level 2 (77156) Diagnoses Elevated liver enzymes R74.8 Diabetes E11.9 Assessment & Plan Assessment & Plan (1) Elevated liver enzymes: Code(s): R74.8 - Abnormal levels of other serum enzymes Category: Medical Plan: Liver?enzymes?elevated?and?have?risen?further She?notes?that?she?has?been?told?she?has?fatty?liver?disorder?in?the?past Will?check?ultrasound?with?elastography Advised?weight?loss,?good?hydration,?decrease?in?any?Tylenol?or?alcohol?intake Will?continue?follow?liver?enzymes?as?well (2) Diabetes: Code(s): E11.9 - Type 2 diabetes mellitus without complications Category: Medical Plan: Blood?suga rs?in?the?morning?have?been?fluctuating?but?patient?says?she?does?not?always?jennifer ck?her?blood?sugars?before?she?has?eaten?or?had?something?to?drink. Advised?her?to?make?her?1st?blood?sugar?check?of?the ?morning?a?fasting?blood?sugar?and?she?agrees?to?do?so Continue?metformin?as?prescribed She?has?not?been?able?to?pick?up?Ozempic?yet?as?she?is?being?told?her?requires?a ?prior?authorization Will?try?a gain?and?get?prior?authorization?and?otherwise?can?change?to?another?medication? in?its?class?or?adjacent?class. Orders: Orders US abdomen [place] w elastography Today R74.8 - Abnormal levels of other serum enzymes Medications: Refilled semaglutide (Ozempic) for 4 weeks 0.25 mg (0.368 mL) subcut QWEEK 28 days 1.472 mL 1RF E11.9 - Type 2 diabetes mellitus without complications
== END 2024-02-12 16:24 | disposition home or self-care (01) ==
LOC: HO.HMCFM 09:21
PROVIDERS: PCP Family Medicine; Visit Provider Family Medicine
DX: R74.8 Abnormal levels of other serum enzymes (principal); E11.9 Type 2 diabetes mellitus without complications

== ENCOUNTER 2024-04-06 13:42 | Outpatient (AMB) | payer OTHER, SELFPAY ==
--- NOTE | 2024-04-06 13:53 | A.OFFVIS_ITS ---
Vital Signs 04/06/24 14:02 Height 5 ft 6 in Weight 209 lb BMI 33.7 BP 191/87 H Blood Pressure Location Rt brachial Position Sitting Pulse 91 Intake Visit Reasons: Ventral hernia Intake Note: Patient referred by pcp Dr. Azar for ventral hernia. Present for yrs. Patient c/o: not bothersome. Denies pain. Abd U/S: 03-28-2023. Housing And Residence Life Director Required: No Allergies No Known Allergies Allergy (Verified 04/06/24 13:58) HPI Comments Details: Patient presents for evaluation of a symptomatic enlarging incisional/lower abdominal ventral hernia. Patient had open sigmoid resection 21 years ago at [facility]. Over the last several years she has noticed a lower abdominal mass/protrusion which is increasing in size and becoming more symptomatic. She presents for further evaluation. Patient has had outpatient sonogram which confirmed the hernia. Patient otherwise having relatively stable bowel habits. She has had colonosc opy in the past. She does occasional heavy lifting at her employment but nothing overly strenuous. 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 Patient has a very corpulent abdomen . Quite protuberant pannus. Lower midline scar demonstrated. She has a very large ventral hernia which is extending to the left of midline. Difficult to because of the patient was sized to assess if she has a single defect of multiple defects. Assessment & Plan Assessment & Plan (1) Ventral hernia: Code(s): K43.9 - Ventral hernia without obstruction or gangrene Category: Surgical Plan: Findings were reviewed with the patient. Current recommendation is to arrange for CT scan of the abdomen pelvis to assess for abdominal wall integrity and rule out multiple hernias. Further interventions studies will be directed by the above-mentioned study. Patient was see me after the scan. All questions answered. Orders: Orders CT abdomen pelvis wo/w IV con Today K43.9 - Ventral hernia without obstruction or gangrene Coding Level of Care Code New Pt Level 4 (11476) Diagnoses Ventral hernia K43.9
[2024-04-06 14:02] VITALS: BP 191/87; PULSE 91; BMI 33.7
== END 2024-04-06 14:14 | disposition home or self-care (01) ==
PROVIDERS: PCP Family Medicine; Referring Provider Family Medicine; Visit Provider Surgery
DX: K43.9 Ventral hernia without obstruction or gangrene (principal)
CPT/HCPCS: 99204

== ENCOUNTER → 2024-04-06 13:42 | Outpatient (BNVA) | payer OTHER, SELFPAY | PROVIDERS: PCP Family Medicine; Referring Provider Family Medicine; Visit Provider Surgery | DX: K43.9 Ventral hernia without obstruction or gangrene (principal) | CPT/HCPCS: 99202 ==

== ENCOUNTER 2024-05-31 13:25 | Outpatient (REF) | payer SELFPAY ==
[2024-05-31 15:05] LABS: Blood Urea Nitrogen 21 mg/dL (9-16); Estimated Glomerular Filt Rate > 60
[2024-05-31 17:45] LABS: Appearance Urine Hazy; Color Urine Yellow; Glucose Urine UA Negative (Negative); Leukocyte Esterase Urine Negative (Negative); Nitrite Urine Negative (Negative); Specific Gravity - Urine 1.025 (1.005-1.025); Urine Blood Negative (Negative); Urine Ketones Negative (Negative); Urine Protein Trace mg/dL (Neg-Trace)
== END 2024-05-31 13:26 | disposition home or self-care (01) ==
LOC: HO.WFDLDS 13:25
PROVIDERS: Referring Provider Surgery; Visit Provider Family Medicine
DX: Z00.00 Encounter for general adult medical examination without abnormal findings (principal); K43.9 Ventral hernia without obstruction or gangrene
CPT/HCPCS: 36415; 81003; 82565; 84520

== ENCOUNTER 2024-06-22 15:39 | Outpatient (REF) | payer OTHER, SELFPAY ==
--- NOTE | ~2024-06-22 | CT_ITS ---
CLINICAL HISTORY: K43.9 - Ventral hernia without obstruction or gangrene --- Additional Notes or Spec ial Instructions: Status post bowel surgery many years ago. Very corpulent abdomen. CT abdomen and pelvis with contrast Comparison: None Findings: Lung bases are clear. No acute bony abnormalities. Degenerative change throughout visualized spine. Midline lower abdominal wall ventral hernia. Hernia contains fat without acute finding. Hepatomegaly with fatty infiltration of the liver. No focal abnormalities in liver or spleen. Pancreas and adrenal glands unremarkable. Gallbladder contracted and not assessed. Tiny nonobstructing bilateral renal stones. No ureteral stone or hydronephrosis. Small renal cysts, no significant abnormality. Abdominal aorta is normal in caliber. No free fluid or adenopathy in the pelvis. No diverticulitis. Appendix unremarkable. Uterus normal size. No adnexal abnormality. Impression: Ventral hernia as above without acute finding Bilateral nonobstructing renal stones This document has been electronically signed by: Johnathon Gramajo MD on 06/23/2024 22:02:40
[2024-06-22] MEDS: iohexoL 350 MG/ML 100 ML INFUS..BTL IV (16:29)
== END 2024-06-22 15:40 | disposition home or self-care (01) ==
LOC: HO.CT 15:39
PROVIDERS: PCP Internal Medicine; Visit Provider Surgery
DX: K43.9 Ventral hernia without obstruction or gangrene (principal)
CPT/HCPCS: 74177; Q9967

== ENCOUNTER → 2024-06-22 15:44 | Outpatient (BNV) | payer OTHER, SELFPAY | PROVIDERS: PCP Internal Medicine; Visit Provider Radiology Diagnostic Radiology | DX: K43.9 Ventral hernia without obstruction or gangrene (principal); N20.0 Calculus of kidney | CPT/HCPCS: 74177 ==

== ENCOUNTER 2024-07-15 14:36 | Outpatient (AMB) | payer OTHER, SELFPAY ==
--- NOTE | 2024-07-15 14:47 | A.OFFPC_ITS ---
Vital Signs 07/15/24 14:55 Height 5 ft 6 in Weight 206 lb 8 oz BMI 33.3 BP 134/70 Blood Pressure Location Lt brachial Position Sitting Respiration 16 Pulse 85 Pulse Source Pulse Oximeter Temp 97.8 F Temp Source Oral Pulse Oximetry (%) 97 Oxygen Delivery Method Room Air Intake Visit Reasons: follow-up diabetes Intake Note: patient is scheduled for follow-up with A1c she not getting approved for medication for diabetes. Allergies No Known Allergies Allergy (Verified 07/15/24 14:53) Medication List - Last Reconciled 07/15/24 by Aakash Azar MD albuterol sulfate 90 mcg/actuation 2 puffs inhalation Q6H PRN atorvastatin 10 mg PO DAILY 90 days barium sulfate 2%(w/v) (Readi-Cat 2) 900 mL PO ONCE blood sugar diagnostic (FreeStyle Lite Strips) DX: E11.9, test blood sugar 2 times a day, 90 days budesonide-formoterol 160-4.5 mcg/actuation (Symbicort) 1 inh inhalation BID 30 days cephalexin 500 mg PO BID empagliflozin (Jardiance) 10 mg PO QAM 90 days metformin 500 mg PO BID 90 days Tobacco use date assessed: 07/15/24 Dental Screening Dental Screen Date: 07/15/24 Did you have a dental visit in the last 12 months?: Yes Did you have a dental problem in the last 6 months where you did not have access to dental care?: No Was dental information given to patient?: No HPI follow-up diabetes HPI Details 58 y/o female presents to f/u diabetes, liver enzymes, abd/umbilical mass. Last A1c 01/14/24 6.2%. No recent labs to review. Abdomen/Pelvis CT 06/23/24 showed ventral hernia without acute findings. Bilateral nonobstructing renal stones. Hx of elevated liver enzymes. 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 1. Little interest or pleasure in doing things: not at all 2. Feeling down, depressed, or hopeless: not at all 3. Trouble falling or staying asleep, or sleeping too much: not at all 4. Feeling tired or having little energy: not at all 5. Poor appetite or overeating: not at all 6. Feeling bad about yourself - or that you are a failure or have let yourself or your family down: not at all 7. Trouble concentrating on things, such as reading the newspaper or watching television: not at all 8. Moving or speaking so slowly that other people could have noticed. Or the opposite - being so fidgety or restless that you have been moving around a lot more than usual: not at all 9. Thoughts that you would be better off or of hurting yourself in some way: not at all Total score: 0 Depression Screening Interpretation: Negative Depression Screening Done: Yes 52627 - PHQ-9 Billing: Yes Source: Developed by Drs. Joseph Bashir, Erika Schroeder, Fritz Heredia and colleagues, with an educational jalil from [employer]. Thrive Questionnaire Date Thrive assessed: 01/07/24 I am a: Patient What is your living situation today?: I have a steady place to live Within the past 12 months, did the food you bought not last and you didn't have the money to get more?: Sometimes True Within the past 12 months, did you worry whether your food would run out before you got money to buy more?: Sometimes True Do you have trouble paying for medicines?: Yes Do you have trouble getting transportation to medical appointments?: No Do you have trouble paying your heating and electricity bill?: Yes Do you have trouble taking care of your child, family member or friend?: No Do you have trouble with day-to-day activities such as bathing, preparing meals, shopping, managing finances, etc.?: No Are you currently unemployed and looking for a job?: No Are you interested in more education?: No Please select the resources that you would like help with: None Currently or been in a relationship where the following occur: No concerns reported THRIVE Score: 3 AUDIT C Alcohol Use Questionnaire (AUDIT-C) 1. How often do you have a drink containing alcohol?: 2-3 times a week 2. How many drinks containing alcohol do you have on a typical day when you are drinking?: 3 or 4 3. How often do you have six or more drinks on one occasion?: Never Total Score: 4 FRANCESCO-7 AMB Questionnaire FRANCESCO-7 Date FRANCESCO - 7 assessed: 07/16/23 Feeling nervous, anxious, or on edge: 0 = Not at all Not being able to stop or control worryin = Not at all Worrying too much about different things: 0 = Not at all Trouble relaxin = Not at all Being so restless that it is hard to sit still: 0 = Not at all Becoming easily annoyed or irritable: 0 = Not at all Feeling afraid as if something awful might happen: 0 = Not at all Total FRANCESCO-7 score (0-4 normal; 5-9 mild; 10-14 moderate; 15-21 severe): 0 Source: Developed by Drs. Joseph Bashir, Erika Schroeder, Fritz Heredia and colleagues, with an educational jalil from [employer]. FRANCESCO-7 Assessment Billing FRANCESCO-7 Assessment Tool: FRANCESCO-7 Assessment 86127 Review of Systems Const Denies chills, Denies fatigue, Denies fever(s), Denies headache(s) and Denies weakness ENT Denies dizziness and Denies headache(s) Card Denies dyspnea Resp Denies cough, Denies dyspnea, Denies wheezing and Denies other (shortness of breath) Musc Denies numbness and Denies tingling Neuro Denies dizziness, Denies headache(s), Denies numbness, Denies tingling and Denies weakness Psych Denies anxiety and Denies depression Endo Denies fatigue Aller/Immun Denies wheezing Physical exam (Primary Care) Vital Signs: Last Vital Signs Temp 97.8 F 07/15/24 14:55 Pulse 85 07/15/24 14:55 Resp 16 07/15/24 14:55 BP 134/70 07/15/24 14:55 Pulse Ox 97 07/15/24 14:55 Oxygen Delivery Method Room Air 07/15/24 14:55 BMI result Body Mass Index 33.3 Tobacco/Smoking Status: Tobacco use Status Tobacco use date assessed 07/15/24 07/15/24 14:59 Patient Tobacco Use Status Current everyday Tobacco 07/15/24 14:48 e-Cigarette/Vaping Use Never Used 07/15/24 14:48 PHQ-9: PHQ-9 Score PHQ-9: Total score 0 07/15/24 16:02 Depression Screening Interpretation: Negative Thrive Assessment: Date of Thrive Assessment Date Thrive assessed 01/07/24 07/15/24 14:48 Currently or been in a relationship where the following occur: No concerns reported Const General: well developed; No acute distress Nutritional Appearance: well nourished Orientation/consciousness: patient oriented x3 HENMT Head: Yes normocephalic and Yes atraumatic Eyes General: appearance normal, both eyes and all related structures Pupils: Equal, round and reactive pupils present EOM: EOMs intact bilaterally Resp Effort & Inspection: normal respiratory effort Neuro General: patient oriented x3 and gait normal Cranial nerves: Yes Equal, round and reactive pupils present Psych Affect: normal affect Coding Level of Care Code Est Pt Level 4 (36822) Diagnoses Diabetes E11.9 Hypertension I10 Ventral hernia K43.9 Elevated liver enzymes R74.8 Allergies T78.40XA Additional Codes FRANCESCO-7 Assessment Billing - FRANCESCO-7 Assessment Tool: FRACNESCO-7 Assessment 64834 ([id number]) PHQ-9 - 91122 - PHQ-9 Billing: Yes ([id number]) Assessment & Plan Assessment & Plan (1) Diabetes: Code(s): E11.9 - Type 2 diabetes mellitus without complications Category: Medical Plan: A1c?5.8%.??Good?control.??Goal?is?less?than?7.0%. Patient?is?hoping?to?try?Jardiance.??She?is?still?apprehensive?about?metformin?w hich?she?is?taking?as?prescribed?however. Continue?current?medication. May?wean?off?metformin?and?continue?or?inc rease?Jardiance?as?needed?at?next?visit?if?still?well?controlled. (2) Hypertension: Code(s): I10 - Essential (primary) hypertension Category: Medical Plan: Blood?pressure?is?controlled (3) Ventral hernia: Code(s): K43.9 - Ventral hernia without obstruction or gangrene Category: Surgical Plan: Patient?had?CT?scan?and?is?now?followed?by?surgery. Follow-up?with?surgeon?next?week (4) Elevated liver enzymes: Code(s): R74.8 - Abnormal levels of other serum enzymes Category: Medical Plan: History?of?elevated?liver?enzymes. Had?ordered?an?ultrasound?with?elastography This?has?not?been?scheduled?yet.??Asking?the?office?to?help?get?this?scheduled?h er. (5) Allergies: Code(s): T78.40XA - Allergy, unspecified, initial encounter Category: Medical Plan: Complaints?of?severe?allergies and?this?is?exacerbating?her?asthma Refilling?some?core?and?albuterol Sending?a?script?for?Zyrtec?and?Flonase We?also?discussed?humidified?air?and?nasal?saline Orders: Orders Comprehensive Met. Panel Today R74.8 - Abnormal levels of other serum enzymes Medications: New fluticasone propionate 50 mcg/actuation (Flonase Allergy Relief) administer into each nostril 1 spray intranasal Q12H 16 grams 2RF 30 days empagliflozin (Jardiance) 10 mg PO QAM 90 tabs 2RF 90 days cetirizine (All Day Allergy (cetirizine)) 10 mg PO DAILY PRN 90 tabs 2RF allergy symptoms 90 days Changed From albuterol sulfate 90 mcg/actuation 2 puffs inhalation Q6H PRN To albuterol sulfate 90 mcg/actuation 2 puffs inhalation Q6H PRN 8.5 grams 3RF shortness of breath or wheezing 90 days Refilled budesonide-formoterol 160-4.5 mcg/actuation (Symbicort) 1 inh inhalation BID 10.2 grams 3RF 30 days
[2024-07-15 14:55] VITALS: BP 134/70; PULSE 85; RESP 16; TEMP 36.6; O2SAT 97; BMI 33.3
== END 2024-07-15 16:25 | disposition home or self-care (01) ==
LOC: HO.HMCFM 14:38
PROVIDERS: PCP Family Medicine; Visit Provider Family Medicine
DX: E11.9 Type 2 diabetes mellitus without complications (principal); I10 Essential (primary) hypertension; K43.9 Ventral hernia without obstruction or gangrene; R74.8 Abnormal levels of other serum enzymes; T78.40XA Allergy, unspecified, initial encounter

== ENCOUNTER → 2024-07-15 14:36 | Outpatient (BNVA) | payer OTHER, SELFPAY | PROVIDERS: PCP Family Medicine; Visit Provider Family Medicine | DX: E11.9 Type 2 diabetes mellitus without complications (principal); I10 Essential (primary) hypertension; K43.9 Ventral hernia without obstruction or gangrene; R74.8 Abnormal levels of other serum enzymes; T78.40XA Allergy, unspecified, initial encounter; X58.XXXA Exposure to other specified factors, initial encounter | CPT/HCPCS: 96127; 99212 ==

== ENCOUNTER 2024-07-20 13:00 | Outpatient (AMB) | payer OTHER, SELFPAY ==
--- NOTE | 2024-07-20 13:09 | A.OFFVIS_ITS ---
Vital Signs 07/20/24 13:17 Height 5 ft 6 in Weight 204 lb 6 oz BMI 33.0 BP 180/79 H Blood Pressure Location Lt brachial Position Sitting Pulse 91 Intake Visit Reasons: CT results, ventral hernia ( Dr Navarro's pt ) Intake Note: Patient is seen in office for CT scan results, following ventral hernia (Dr Navarro's pt). Pt c/o:here for results, no changes Drug Abuse Worker Required: No Accompanied by: Self / Same As Patient Allergies No Known Allergies Allergy (Verified 07/20/24 13:17) Medication List - Last Reconciled 07/20/24 by Wander Glasgow MD albuterol sulfate 90 mcg/actuation 2 puffs inhalation Q6H PRN 90 days atorvastatin 10 mg PO DAILY 90 days barium sulfate 2%(w/v) (Readi-Cat 2) 900 mL PO ONCE blood sugar diagnostic (FreeStyle Lite Strips) DX: E11.9, test blood sugar 2 times a day, 90 days budesonide-formoterol 160-4.5 mcg/actuation (Symbicort) 1 inh inhalation BID 30 days cephalexin 500 mg PO BID cetirizine (All Day Allergy (cetirizine)) 10 mg PO DAILY PRN 90 days empagliflozin (Jardiance) 10 mg PO QAM 90 days fluticasone propionate 50 mcg/actuation (Flonase Allergy Relief) 1 spray intr anasal Q12H 30 days metformin 500 mg PO BID 90 days HPI Comments Details: 58-year-old female presenting with concerns regarding an abdominal hernia. Approximately ten years ago, a mass mainly consisting of fatty tissue was identified. The hernia has increased in size. She occasionally experiences bowel disturbance followed by diarrhea, denies nausea or vomiting, and feels swelling more prominently when bloated. Her medical history includes diverticulitis surgery over 20 years ago, which identified a sizeable non-cancerous mass, and tubal ligation at age 26. She underwent an unsuccessful ovarian surgery due to complexities attributed to her weight and potential scar tissue. CT abdomen and pelvis confirmed a lower midline abdominal wall ventral hernia which contains fat without acute findings. She presents today to discuss repair of this incisional/ventral hernia. 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 Cognitive needs: No Hearing needs: No Vision needs: No Review of Systems Const All systems reviewed & are unremarkable except as noted in HPI and below Resp Reports cough Physical Exam Const General: cooperative and no acute distress Nutritional Appearance: well nourished Orientation/consciousness: patient oriented x3 Limitations: no limitations HEENT Head: Yes normocephalic and Yes atraumatic Ears: hearing grossly normal bilaterally Resp Effort & Inspection: normal respiratory effort, no audible wheezes, no cough and no respiratory distress Cardio Jugular venous distension: no JVD GI Inspection: Yes normal to inspection, No distended, Yes incision (Lower midline) and Yes Abdominal panniculus present Palpation (GI): Soft to palpation, nontender, no guarding and Hernia present ventral (5 cm diameter, increases with Valsalva maneuvers, reducible with light pressure) Skin Other: Warm, dry, no rash Neuro General: patient oriented x3 Extrem General: Yes no clubbing, cyanosis or edema Assessment & Plan Assessment & Plan (1) Ventral hernia: Code(s): K43.9 - Ventral hernia without obstruction or gangrene Category: Surgical Qualifiers: Obstruction and gangrene presence: without obstruction or gangrene Qualified Code(s): K43.9 - Ventral hernia without obstruction or gangrene Plan 58-year-old female patient presenting for evaluation of a lower midline incisional hernia. On examination the hernia measures approximately 5 cm in diameter. The hernia increases in size with Valsalva maneuvers but reduces with light pressure. We discussed repair of this reducible incisional hernia with mesh and after discussion of the procedure, risks, and alternatives, she consents to the surgery. She will wait until November to have the repair history vacations. She should call sooner for any new concerns. Coding Level of Care Code New Pt Level 4 (11961) Diagnoses Ventral hernia without obstruction or gangrene K43.9 Obstruction and gangrene presence: without obstruction or gangrene
[2024-07-20 13:17] VITALS: BP 180/79; PULSE 91; BMI 33.0
== END 2024-07-20 13:34 | disposition home or self-care (01) ==
LOC: HO.HGS 13:01
PROVIDERS: PCP Family Medicine; Visit Provider Surgery
DX: K43.9 Ventral hernia without obstruction or gangrene (principal)
CPT/HCPCS: 99204

== ENCOUNTER → 2024-07-20 13:00 | Outpatient (BNVA) | payer OTHER, SELFPAY | PROVIDERS: PCP Family Medicine; Visit Provider Surgery | DX: K43.9 Ventral hernia without obstruction or gangrene (principal) | CPT/HCPCS: 99202 ==

== ENCOUNTER 2024-09-02 09:43 | Outpatient (REF) | payer OTHER, SELFPAY ==
--- NOTE | ~2024-09-02 | US_ITS ---
EXAMINATION: US ABDOMEN LIMITED WITH LIVER ELASTOGRAPHY HISTORY: R74.8 - ELEVATED LIVER ENZYMES TECHNIQUE: Real-time grayscale ultrasound imaging of the right upper quadrant was performed and images were reviewed. COMPARISON: Correlation is made with a CT of the abdomen with contrast dated 06/22/2024. FINDINGS: Liver: The right lobe of the liver measures 14.1 cm in size. The left lobe of the liver measures 12.2 cm in size. The liver demonstrates increased echotexture, consistent with steatosis. No focal mass or intrahepatic biliary ductal dilatation is identified. There is normal hepatopedal flow in the portal vein. Ultrasound elastography of the liver was performed with 10 separate measurements of the liver parenchyma with the patient in the supine position. Measurements were obtained approximately 2 cm below Adry's capsule and perpendicular to the capsule. The median shear wave velocity is 1.70 m/s. The interquartile range/median (IQR/median) is 0.05. Gallbladder and biliary tree: The gallbladder is unremarkable, without evidence of calculi, wall thickening, or pericholecystic fluid. There is no sonographic Oliveira sign. The common bile duct is normal in caliber measuring 2 mm. Right Kidney: The right kidney measures 10.3 cm in length. The right kidney is unremarkable, without evidence of masses, hydronephrosis, or calculi. Pancreas: The pancreatic head, neck, and body are unremarkable. The pancreatic tail is obscured by bowel gas. Abdominal aorta and inferior vena cava: The visualized portions of the abdominal aorta and inferior vena cava are normal in caliber. There is no free fluid in the right upper quadrant. US/US abdomen [place] w elastography IMPRESSION: Hepatic steatosis. The median shear wave velocity in the liver is 1.70 m/s, corresponding to a median liver stiffness of 8.67 kPa. The IQR/median value is 0.05. This is indicative of a quality data set. Findings are indicative of a high elastography value suggestive of compensated advanced chronic liver disease. REFERENCE: Society of Radiologists in Ultrasound Liver Stiffness Thresholds (2020): LIVER STIFFNESS THRESHOLDS: *Shear wave velocity less than 1.3 m/s (Liver Stiffness equal or less than 5 kPa): High probability of being normal. *Shear wave velocity less than 1.7 m/s (Liver Stiffness less than 9 kPa): In the absence of other known clinical signs, rules out compensated advanced chronic liver disease. *Shear wave velocity between 1.7-2.1 m/s (Liver Stiffness 9-13 kPa): Suggestive of compensated advanced chronic liver disease but need further test for confirmation. *Shear wave velocity between 2.1-2.4 m/s (Liver Stiffness 13-17 kPa): Rules in compensated advanced chronic liver disease. *Shear wave velocity greater than 2.4 m/s (Liver Stiffness over 17 kPa): Suggestive of clinically significant portal hypertension. QUALITY OF DATA SET: SIGNIFICANT CHANGE FROM PRIOR EXAM: Significant change if liver stiffness measurement is 10% or greater from prior exam. OTHER CONSIDERATIONS: The stage of liver fibrosis may be overestimated in the setting of acute hepatitis, liver inflammation, elevated liver function tests, hepatic vascular congestion, obstructive cholestasis, non-fasting state, and infiltrative diseases such as amyloidosis and lymphoma. In some patients with NAFLD, the liver stiffness thresholds for compensated advanced chronic liver disease may be lower. In causes other than viral hepatitis and NAFLD, liver stiffness thresholds are not well established. Electronically signed by: Joseph Day MD 09/02/2024 10:58 AM EDT
== END 2024-09-02 09:44 | disposition home or self-care (01) ==
LOC: HO.US 09:43
PROVIDERS: PCP Family Medicine; Visit Provider Family Medicine
DX: R74.8 Abnormal levels of other serum enzymes (principal)
CPT/HCPCS: 76705; 76981

== ENCOUNTER → 2024-09-02 09:45 | Outpatient (BNV) | payer OTHER, SELFPAY | PROVIDERS: PCP Family Medicine; Visit Provider Radiology Diagnostic Radiology | DX: K76.0 Fatty (change of) liver, not elsewhere classified (principal) | CPT/HCPCS: 76705 ==

== ENCOUNTER 2024-09-07 15:01 | Outpatient (AMB) | payer OTHER, SELFPAY ==
[2024-09-07 15:19] VITALS: BP 138/82; PULSE 93; TEMP 36.8; O2SAT 95; BMI 33.1
--- NOTE | 2024-09-07 15:19 | MHC.OFFWIV ---
Intake Vital Signs 09/07/24 15:19 Height 5 ft 6 in Weight 205 lb BMI 33.1 BP 138/82 Blood Pressure Location Rt brachial Position Sitting Pulse 93 Pulse Source Pulse Oximeter Temp 98.2 F Temp Source Oral Pulse Oximetry (%) 95 Oxygen Delivery Method Room Air Intake Visit Reasons: EP ? UTI Intake Note: pt presents frequent urination with burning,mild low abdominal pain, vaginal itch Patient Tobacco Use Status: Current everyday Tobacco user Allergies No Known Allergies Allergy (Verified 09/07/24 15:24) Do you need a note to return to daycare/school/sports/work: No HPI HPI Comments History of Present Illness Details History - The patient is a 58-year-old female presenting with increased frequency of urination and associated symptoms. - Reports three days of increased frequency of urination, low back pain, dysuria, and vaginal pruritus. - Denies fevers, hematuria, or history of nephrolithiasis. - Applied Vaseline-type ointment for labia itching, which was ineffective. - Started Jardiance one month ago. Physical Exam General: Cooperative, healthy appearing, comfortable, no acute distress and well developed Orientation: Patient oriented x3 Limitations: No limitations Head: Normal to inspection Ears: Hearing grossly normal bilaterally Face and sinus: Normal facial exam Neck: Normal visual inspection and Yes full ROM Respiratory: Normal respiratory effort and able to speak in complete sentences. 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 Cognitive needs: No Hearing needs: No Vision needs: No Review of Systems Const All systems reviewed & are unremarkable except as noted in HPI and below Physical Exam Vital Signs: Last Vital Signs Temp 98.2 F 09/07/24 15:19 Pulse 93 09/07/24 15:19 BP 138/82 09/07/24 15:19 Pulse Ox 95 09/07/24 15:19 Oxygen Delivery Method Room Air 09/07/24 15:19 BMI result Body Mass Index 33.1 Results AMB Urinalysis, Automated UA Leukoctes 0 Goldie/uL Last Edit by Douglas Cisneros CMA on 09/07/24 15:37 UA Nitrite Negative Last Edit by Douglas Cisneros CMA on 09/07/24 15:37 UA Urobilinogen 0.2 mg/dL Last Edit by Douglas Cisneros CMA on 09/07/24 15:37 UA Protein 0 mg/dL Last Edit by Douglas Cisneros CMA on 09/07/24 15:37 UA pH 6.0 Last Edit by Douglas Cisneros CMA on 09/07/24 15:37 UA Blood 0 Mitesh/uL Last Edit by Douglas Cisneros CMA on 09/07/24 15:37 UA Specific [place] 1.015 Last Edit by Douglas Cisneros CMA on 09/07/24 15:37 UA Ketone Negative Last Edit by Douglas Cisneros CMA on 09/07/24 15:37 UA Bilirubin 0 mg/dL Last Edit by Douglas Cisneros CMA on 09/07/24 15:37 UA Glucose 1000 mg/dL Last Edit by Douglas Cisneros CMA on 09/07/24 15:37 Results Reviewed Results Reviewed: Laboratory Last Values Urine pH (Auto) 6.0 09/07/24 15:36 Specific [place] (Auto) 1.015 09/07/24 15:36 Urine Protein (Auto) 0 mg/dL 09/07/24 15:36 Glucose (UA)(Auto) 1000 mg/dL 09/07/24 15:36 Urine Ketones (Auto) Negative 09/07/24 15:36 Urine Blood (Auto) 0 Mitesh/uL 09/07/24 15:36 Urine Nitrite (Auto) Negative 09/07/24 15:36 Urine Bilirubin (Auto) 0 mg/dL 09/07/24 15:36 Urine Urobilinogen (Auto) 0.2 mg/dL 09/07/24 15:36 Leukocyte Esterase (Auto) 0 Goldie/uL 09/07/24 15:36 Assessment & Plan Assessment & Plan (1) UTI (urinary tract infection): Code(s): N39.0 - Urinary tract infection, site not specified Qualifiers: Urinary tract infection type: acute cystitis Hematuria presence: with hematuria Qualified Code(s): N30.01 - Acute cystitis with hematuria Plan: Patient was informed and verbally consented to the use of an ambient scribe for clinic note documentation during this visit. - Urinalysis negative for leukocytes, nitrites, and blood, but three plus glucose present due to Jardiance. - Initiate treatment with cefuroxime to address potential bacterial causes. - Monitor symptoms and follow up if symptoms worsen or if fever develops. - Sent urine culture. (2) Vaginal pruritus: Code(s): N89.8 - Other specified noninflammatory disorders of vagina Plan: Vaginal Pruritus - Consider antifungal cream if symptoms persist after antibiotic treatment. - Educated patient on potential side effects of Jardiance, including glucosuria that can cause fungal infection and irritation. Orders: Orders AMB Urinalysis Automated Today Z13.9 - Encounter for screening, unspecified Urine Culture Today N39.0 - Urinary tract infection, site not specified Medications: New cefuroxime axetil 500 mg PO Q12H 10 tabs 0RF Coding Level of Care Code Est Pt Level 3 (37042) Diagnoses Acute cystitis with hematuria N30.01 Urinary tract infection type: acute cystitis Hematuria presence: with hematuria Vaginal pruritus N89.8
== END 2024-09-07 15:55 | disposition home or self-care (01) ==
PROVIDERS: PCP Family Medicine; Visit Provider Physician Assistant
DX: N30.01 Acute cystitis with hematuria (principal); N89.8 Other specified noninflammatory disorders of vagina; Z13.9 Encounter for screening, unspecified

== ENCOUNTER 2024-09-07 15:01 | Outpatient (REF) | payer OTHER, SELFPAY | END 2024-09-07 15:02 | disposition home or self-care (01) | LOC: HO.LAB 15:01 | PROVIDERS: PCP Family Medicine | DX: N30.01 Acute cystitis with hematuria (principal); Z13.9 Encounter for screening, unspecified | CPT/HCPCS: 81003; 87086; 99212 ==

== ENCOUNTER 2024-09-16 11:15 | Outpatient (AMB) | payer OTHER, SELFPAY ==
--- NOTE | 2024-09-16 11:13 | MHC.PC.OV ---
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: No Allergies No Known Allergies Allergy (Verified 09/16/24 11:13) Medication List - Last Reconciled 09/16/24 by Aakash Azar MD albuterol sulfate 90 mcg/actuation 2 puffs inhalation Q6H PRN 90 days atorvastatin 10 mg PO DAILY 90 days blood sugar diagnostic (FreeStyle Lite Strips) DX: E11.9, test blood sugar 2 times a day, 90 days budesonide-formoterol 160-4.5 mcg/actuation (Symbicort) 1 inh inhalation BID 30 days cetirizine (All Day Allergy (cetirizine)) 10 mg PO DAILY PRN 90 days empagliflozin (Jardiance) 10 mg PO QAM 90 days fluticasone propionate 50 mcg/actuation (Flonase Allergy Relief) 1 spray intranasal Q12H 30 days metformin 500 mg PO BID 90 days Tobacco use date assessed: 07/15/24 Dental Screening Dental Screen Date: 07/15/24 HPI f/u chronic conditions via telemedicine HPI Details 59 y/o female presents to f/u elevated liver enzymes, liver ultrasound. Also following up if she was able to get Jardiance. F/u on ventral hernia. Had seen general surgery 07/20/24 - they plan for a surgery. Liver ultrasound 09/02/24 shows hepatic steatosis. 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 Cognitive needs: No Hearing needs: No Vision needs: No Questionnaire Thrive Questionnaire Date Thrive assessed: 07/15/24 I am a: Patient What is your living situation today?: I have a steady place to live Within the past 12 months, did the food you bought not last and you didn't have the money to get more?: Sometimes True Within the past 12 months, did you worry whether your food would run out before you got money to buy more?: Sometimes True Do you have trouble paying for medicines?: Yes Do you have trouble getting transportation to medical appointments?: No Do you have trouble paying your heating and electricity bill?: Yes Do you have trouble taking care of your child, family member or friend?: No Do you have trouble with day-to-day activities such as bathing, preparing meals, shopping, managing finances, etc.?: No Are you currently unemployed and looking for a job?: No Are you interested in more education?: No Please select the resources that you would like help with: None Currently or been in a relationship where the following occur: No concerns reported THRIVE Score: 3 FRANCESCO-7 AMB Questionnaire FRANCESCO-7 Date FRANCESCO - 7 assessed: 07/16/23 Source: Developed by Drs. Joseph Bashir, Erika Schroeder, Fritz Heredia and colleagues, with an educational jalil from [facility]. Review of Systems Const Denies chills, Denies fatigue, Denies fever(s), Denies headache(s) and Denies weakness ENT Denies dizziness and Denies headache(s) Card Denies dyspnea Resp Denies cough, Denies dyspnea, Denies wheezing and Denies other (shortness of breath) Musc Denies numbness and Denies tingling Neuro Denies dizziness, Denies headache(s), Denies numbness, Denies tingling and Denies weakness Psych Denies anxiety and Denies depression Endo Denies fatigue Aller/Immun Denies wheezing Physical exam (Primary Care) Tobacco/Smoking Status: Tobacco use Status Tobacco use date assessed 07/15/24 09/16/24 11:14 Patient Tobacco Use Status Current everyday Tobacco 09/16/24 11:14 e-Cigarette/Vaping Use Never Used 09/16/24 11:14 Thrive Assessment: Date of Thrive Assessment Date Thrive assessed 07/15/24 09/16/24 11:14 Currently or been in a relationship where the following occur: No concerns reported Telehealth Telehealth Telehealth Platform: Telephone Location of provider rendering services: practice address Location of patient: address on file Patient Identification confirmed using: Name, : Yes Telehealth method: voice only Patient verbally consented to treatment: Yes Patient verbally consented to billing insurance company: Yes Patient informed of any privacy concerns related to visit: Yes Minutes spent on Phone/Video with Pt.: 8 Coding Level of Care Code Tele Est Pt Level 2 (07732) Diagnoses Diabetes E11.9 Elevated liver enzymes R74.8 Ventral hernia without obstruction or gangrene K43.9 Obstruction and gangrene presence: without obstruction or gangrene Assessment & Plan Assessment & Plan (1) Diabetes: Code(s): E11.9 - Type 2 diabetes mellitus without complications Category: Medical Plan: Patient now taking Jardiance which was approved by her insurance Will follow-up in a few months to see how blood sugar control is (2) Elevated liver enzymes: Code(s): R74.8 - Abnormal levels of other serum enzymes Category: Medical Plan: History of elevated liver enzymes and hepatic steatosis Recent ultrasound shows ongoing hepatic steatosis with elastography 1.70; compensated advanced chronic liver disease. We discussed working at weight loss. Patient notes that since starting Jardiance she has not lost any weight in rather has gained weight. We had discussed a GLP 1 medication but her insurance had declined this noting that she had never tried Jardiance. Will follow-up with her at next visit to review for weight loss in review elevated liver enzymes. May readdress trying to get her HDL be 1 medication. (3) Ventral hernia: Code(s): K43.9 - Ventral hernia without obstruction or gangrene Category: Surgical Qualifiers: Obstruction and gangrene presence: without obstruction or gangrene Qualified Code(s): K43.9 - Ventral hernia without obstruction or gangrene Plan: Plan with her surgeon is for ventral hernia repair. Patient is going on vacation so will schedule around November. Orders: Orders Hemoglobin A1c Today R73.01 - Impaired fasting glucose
== END 2024-09-16 17:05 ==
LOC: HO.HMCFM 11:15
PROVIDERS: PCP Family Medicine; Visit Provider Family Medicine
DX: E11.9 Type 2 diabetes mellitus without complications (principal); R74.8 Abnormal levels of other serum enzymes; K43.9 Ventral hernia without obstruction or gangrene

== ENCOUNTER 2025-02-24 11:10 | Outpatient (REF) | payer OTHER, SELFPAY ==
[2025-02-24 15:50] LABS: Alanine Aminotransferase 80 U/L (0-31); Albumin Level 4.2 g/dL (3.5-5.0); Alkaline Phosphatase 49 U/L (39-117); Anion Gap 10 (12-20); Aspartate Amino Transferase 59 U/L (5-31); Blood Urea Nitrogen 24 mg/dL (9-16); Calcium 9.2 mg/dL (8.4-10.2); Carbon Dioxide 30 mmol/L (22-29); Chloride 104 mmol/L (96-108); Estimated Glomerular Filt Rate > 60; Potassium 4.1 mmol/L (3.3-5.1); Sodium 140 mmol/L (135-145); Total Protein 6.7 g/dL (6.5-8.0)
== END 2025-02-24 11:11 | disposition home or self-care (01) ==
LOC: HO.WFDLDS 11:10
PROVIDERS: Visit Provider Family Medicine
DX: R73.01 Impaired fasting glucose (principal); R74.8 Abnormal levels of other serum enzymes
CPT/HCPCS: 36415; 80053; 83036

== ENCOUNTER 2025-03-04 09:30 | Outpatient (AMB) | payer OTHER, SELFPAY ==
--- NOTE | 2025-03-04 10:06 | MHC.OFFWIV ---
Intake Vital Signs 03/04/25 10:07 03/04/25 12:31 Height 5 ft 6 in Weight 198 lb BMI 32.0 BP 130/62 Blood Pressure Location Lt brachial Position Sitting Respiration 20 Pulse 112 H 111 H Pulse Source Pulse Oximeter Pulse Oximeter Temp 98.4 F Temp Source Oral Pulse Oximetry (%) 91 L 90 L Oxygen Delivery Method Room Air Room Air Intake Visit Reasons: EP SOB, fever, congestion Intake Note: Patient presents c/o chest congestion, headache, cough, sinus congestion, no appetite, body aches x5 days. Patient Tobacco Use Status: Current everyday Tobacco user Allergies empagliflozin (From [employer]) Adverse Reaction (Intermediate, Verified 03/04/25 13:09) Rash HPI HPI Comments History of Present Illness Details History of Present Illness The patient is a 59 year old female with a past medical history of asthma, tobacco use disorder, diabetes, hypertension, and hyperlipidemia presenting with difficulty breathing for the last few days - Notable symptoms include difficulty breathing, chest congestion, headache, sinus congestion, and ear pain associated with coughing which started Friday - She uses Symbicort and a rescue inhaler daily but has difficulty with effective use. - She has not required hospitalization or intubation due to her asthma. - Patient reports that she has a history of tremors at baseline which run in her family - Patient reports that she reached out to her doctor who prescribed her Z-Matt, she has 1 day left of the medication. - She denies any fevers or N/V/D - Patient reports that she is a smoker, and has been unable to smoke due to difficulty breathing. Review of Systems Constitutional: Negative for fevers, chills HENT: Reports congestion, rhinorrhea, ear pain. Denies sore throat Respiratory: Reports cough, shortness of breath, chest tightness, wheezing Cardiac: Negative for chest pain Gastrointestinal: Denies nausea, vomiting, diarrhea, Musculoskeletal: Reports myalgias, Neurological: Reports headaches Physical Exam General Appearance: Normal appearance, well developed. HEENT: Normocephalic, atraumatic. External ears and ear canals normal. TM without erythema or bulging. Middle ear effusions noted. Clear nasal drainage present.. Oropharynx clear without erythema or exudate. Cardiac: Tachycardia with regular rhythm noted. No murmurs Pulmonary: No respiratory distress noted. Patient is speaking in full sentences. Diminished breath sounds noted bilaterally in upper and lower lung chin Musculoskeletal: Moving all extremities spontaneously and against gravity. Patient noted to be tremulous Mental Status: Alert and Oriented x 3. Psychiatric: Normal mood. Normal affect. 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 Cognitive needs: No Hearing needs: No Vision needs: No Physical Exam Vital Signs: Last Vital Signs Temp 98.4 F 03/04/25 10:07 Pulse 111 H 03/04/25 12:31 Resp 20 03/04/25 10:07 BP 130/62 03/04/25 10:07 Pulse Ox 90 L 03/04/25 12:31 Oxygen Delivery Method Room Air 03/04/25 12:31 BMI result Body Mass Index 32.0 Office Procedures Nebulizer Treatment Nebulizer Treatment 15215-Xuagpwxuk/MDI RX initial, or Nebulizer Subsequent Treatment Nebulizer Treatment Nebulizer Treatment 62225-Xqrvfwoer/MDI RX initial, or Nebulizer Subsequent Treatment Office Meds ipratropium 0.5 mg-albuterol 3 mg (2.5 mg base)/3 mL nebulization soln Performing Provider: Destinee Meeks MD Performing Location: [facility] [place] [facility] Administered by: Destinee Meeks MD on 03/04/25 14:15 Dose Route Admin Location Dispensed Lot Number Expiration Date NDC Grain Scooper 3 mL inhalation 3 mL 10/07/26 95970-638-18 [employer] albuterol sulfate 2.5 mg/3 mL (0.083 %) solution for nebulization Performing Provider: Destinee Meeks MD Performing Location: [facility] [place] [facility] Administered by: Destinee Meeks MD on 03/04/25 14:15 Dose Route Admin Location Dispensed Lot Number Expiration Date NDC G[employer] Scooper 2.5 mg inhalation 3 mL [id number] 06/07/26 3181-0327-61 MYLAN prednisone 20 mg tablet Performing Provider: Destinee Meeks MD Performing Location: [facility] [place] [facility] Administered by: Destinee Meeks MD on 03/04/25 12:59 Dose Route Admin Location Dispensed Lot Number Expiration Date NDC G[employer] Sco[employer] 40 mg PO 2 tab [id number] 06/07/25 Assessment & Plan Assessment & Plan (1) Asthma exacerbation: Code(s): J45.901 - Unspecified asthma with (acute) exacerbation Qualifiers: Asthma severity: unspecified severity Asthma persistence: unspecified Qualified Code(s): J45.901 - Unspecified asthma with (acute) exacerbation (2) Viral URI: Code(s): J06.9 - Acute upper respiratory infection, unspecified Plan - Patient with a known history of asthma presents with rhinorrhea, congestion, cough, and shortness of breath for 6 days. - Upon physical exam, she was able to speak in full sentences, however, was noted to have diminished breath sounds bilaterally with a decreased SpO2. - She was given prednisone 40 mg and a DuoNeb breathing treatment. Patient noted to have a history of diabetes and was counseled about temporary increase in blood sugars. - Upon re-evaluation, patient noted to have improved breath sounds and reported breathing better, however saturating at SpO2 91% - A chest x-ray performed in office did not show any evidence of pneumonia. - Another breathing treatment with albuterol was administered. - Upon re-evaluation, patient was noted to still be saturating between SpO2 90% and 91%. - Based on vitals, patient was recommended further evaluation and treatment in the emergency room. - Patient was agreeable. EMS was offered, however patient declined and reported that she will go by private vehicle. - Report given to [facility] [place] [facility]. Patient was informed and verbally consented to the use of an ambient scribe for clinic note documentation during the visit. Orders: Orders SARS-CoV2/FLU/RSV Today Sandra Barriga PA-C R09.89 - Other specified symptoms and signs involving the circulatory and respiratory systems AMB Nebulizer Treatment Today Destinee Meeks MD R06.2 - Wheezing XR chest 2V Today Destinee Meeks MD R05.9 - Cough, unspecified AMB Prednisone Adult Dose Today Destinee Meeks MD R06.2 - Wheezing AMB Nebulizer Treatment Today Destinee Meeks MD R06.2 - Wheezing Coding Level of Care Code Est Pt Level 5 (34402) Diagnoses Exacerbation of asthma, unspecified asthma severity, unspecified whether persistent J45.901 Asthma severity: unspecified severity Asthma persistence: unspecified Viral URI J06.9 CPT Codes Nebulizer Treatment - Nebulizer Treatment, initial or subsequent: 41230-Fqjjuhhhh/MDI RX initial, or Nebulizer Subsequent Treatment ([id number]) Nebulizer Treatment - Nebulizer Treatment, initial or subsequent: 19572-Peszkmrfr/MDI RX initial, or Nebulizer Subsequent Treatment ([id number])
[2025-03-04 10:07] VITALS: BP 130/62; PULSE 112; RESP 20; TEMP 36.9; O2SAT 91; BMI 32.0
[2025-03-04 12:31] VITALS: PULSE 111; O2SAT 90
== END 2025-03-04 12:27 | disposition home or self-care (01) ==
PROVIDERS: PCP Family Medicine; Visit Provider Family Medicine
DX: J45.901 Unspecified asthma with (acute) exacerbation (principal); J06.9 Acute upper respiratory infection, unspecified; R06.2 Wheezing

== ENCOUNTER 2025-03-04 09:30 | Outpatient (REF) | payer OTHER, SELFPAY ==
--- NOTE | ~2025-03-04 | XR_ITS ---
EXAMINATION: XR CHEST 2 VIEWS HISTORY: R05.9 - Cough, unspecified COMPARISON: There are no prior studies available for comparison. FINDINGS: PA and lateral views of the chest are submitted. The lungs are expanded and clear. There is no pleural effusion, pneumothorax, or pulmonary vascular congestion. The heart is normal in size. There is degenerative disc disease of the spine. XR/XR chest 2V IMPRESSION: No acute cardiopulmonary abnormality. Electronically signed by: Joseph Day MD 03/04/2025 11:31 AM [facility]
[2025-03-04 15:36] LABS: Resp Syncy Virus RNA Qual PCR NEGATIVE (Negative); SARS COV2 PCR INHOUSE NEGATIVE (Negative)
== END 2025-03-04 09:31 | disposition home or self-care (01) ==
LOC: HO.HMGCX 09:30
PROVIDERS: PCP Family Medicine; Visit Provider Physician Assistant
DX: J45.901 Unspecified asthma with (acute) exacerbation (principal); J06.9 Acute upper respiratory infection, unspecified; R09.89 Other specified symptoms and signs involving the circulatory and respiratory systems
CPT/HCPCS: 71046; 87637; 94640; 99212

== ENCOUNTER 2025-03-04 12:46 | Inpatient (IN) | payer OTHER, SELFPAY ==
[2025-03-04] VITALS (9 sets, daily range): BP systolic 118–188; BP diastolic 72–95; PULSE 82–123; RESP 20–33; TEMP 36.6–36.9; O2SAT 87–93; BMI 32.0
--- NOTE | ~2025-03-04 | CT_ITS ---
EXAMINATION: CT ANGIOGRAM OF THE CHEST WITH AND WITHOUT CONTRAST (CT PULMONARY ANGIOGRAM FOR PE) CLINICAL INFORMATION: hypoxic COMPARISON: No pertinent prior studies are available for comparison. TECHNIQUE: Prior to contrast administration, noncontrast localization images were obtained. Subsequently, multidetector volumetric imaging was performed from the thoracic inlet to below the diaphragms following the administration of 65 mL Omnipaque 350 intravenous contrast. No contrast reaction reported Sagittal, coronal, and MIP oblique sagittal reformatted images were obtained on the CT workstation, uploaded to PACS, and reviewed. Total exam dose-length product 654 mGy-cm FINDINGS: QUALITY OF STUDY/CONTRAST BOLUS: Satisfactory. PULMONARY ARTERIES: There is subtle small filling defect in the segmental vessel to the right lower lobe, suspicious for small pulmonary embolism. (Series 8:83-84). No additional significant filling defects identified. THORACIC AORTA: No aneurysm. LUNG: Linear opacities in the lingula and left lower lobe could reflect atelectasis or inflammatory process. No suspicious nodules are seen. Trachea and central airway are patent. PLEURA: No pleural effusion or pneumothorax. MEDIASTINUM: There is a mass in the anterior/superior mediastinum. Measures up to 3.3 x 3.3 x 6.6 cm (AP x ML x CC) Hounsfield measurements 54. This mass is indeterminate. Normal heart size. No pericardial effusion. There is soft tissue fullness along the right lateral aspect of the trachea, which could represent a distended vessel, adenopathy/mass cannot be excluded. For example image 8:48. No bulky hilar adenopathy seen. CORONARY ARTERY CALCIFICATION: Present CHEST WALL/AXILLA: No axillary or internal mammary lymphadenopathy. OSSEOUS STRUCTURES: No acute or suspicious osseous abnormality. UPPER ABDOMEN: Unremarkable. No reflux of contrast into the hepatic veins to suggest elevated right heart pressures. CT/CT angio chest PE protocol IMPRESSION: * Subtle filling defect in the segmental vessel to the right lower lobe, suspicious for pulmonary embolism. * There is a solid mass in the anterior/superior mediastinum measuring 3.3 x 3.3 x 6.6 cm. This mass is indeterminate. Differential considerations include neoplastic etiologies. Correlate with patient's clinical history, prior imaging. Recommend workup of the mass, options including MRI evaluation. *Linear atelectasis/inflammatory process in the left lung as detailed above. VTE: negative This result was discussed with Charity Cole at 3:35 PM on 03/04/2025 and it was ascertained that the content and urgency of the report was understood at the time of direct communication. Electronically signed by: Dominick Bennett MD 03/04/2025 03:37 PM [facility]
--- NOTE | ~2025-03-04 | XR_ITS ---
EXAMINATION: XR CHEST CLINICAL INFORMATION: SOB COMPARISON: Chest 03/03/2025 TECHNIQUE: Frontal view of the chest was obtained. FINDINGS: The lungs are well-expanded and clear of acute process. The heart size and pulmonary vascularity is normal. No gross bony abnormality seen. XR/XR chest 1V IMPRESSION: Unremarkable chest exam. Electronically signed by: Dilan Lim MD 03/04/2025 01:42 PM EST
--- NOTE | 2025-03-04 13:15 | ECG_ITS ---
Test Reason : SOB Blood Pressure : */* mmHG Vent. Rate : 111 BPM Atrial Rate : 111 BPM P-R Int : 158 ms QRS Dur : 80 ms QT Int : 326 ms P-R-T Axes : 60 -5 45 degrees QTcB Int : 443 ms Sinus tachycardia Possible Inferior infarct , age undetermined Abnormal ECG No previous ECGs available Referred By: Charity Cole Electronically Signed By: VANIA PADILLA MD
[2025-03-04 13:31] LABS: MANUAL DIFF FLAG NO
[2025-03-04] MEDS: Magnesium Sulfate/H2O 2 GM/50 ML PIGGYBACK IV (13:34)
[2025-03-04 13:35] LABS: Hematocrit 47.4 % (37.0-47.0); Hemoglobin 16.0 g/dl (12.0-16.0); Imm Gran Abs Auto 0.01 X10*3/uL (0.00-0.03); Imm Gran Pct Auto 0.2 % (0.0-0.4); Lymphocytes Absolute Auto 0.8 X10*3/uL (1.2-4.9); Mean Corpuscular HGB Conc 33.8 g/dl (31.0-35.0); Mean Corpuscular Hemoglobin 31.3 pg (27.0-33.0); Mean Corpuscular Volume 92.8 fL (80.0-98.0); NRBC Abs Auto 0.000 X10*3/uL (0.0-0.012); NRBC Pct Auto 0.0 /100WBC (0.0-0.2); Platelet Count 108 X10*3/uL (160-400); Red Blood Count 5.11 X10*6/uL (4.20-5.50); White Blood Count 5.9 X10*3/uL (4.8-10.8)
[2025-03-04 13:37] LABS: Venous Blood Gas Refer to POC result
[2025-03-04 13:38] LABS: VBG HCO3 28 mmol/L (22-26); VBG O2 % Saturation 65.0 %
[2025-03-04 13:38] LABS: INTERNATIONAL NORM RATIO 1.1 (0.9-1.1); Prothrombin Time 13.8 SEC (11.2-13.5)
[2025-03-04 13:50] LABS: Alanine Aminotransferase 134 U/L (0-31); Albumin Level 4.4 g/dL (3.5-5.0); Alkaline Phosphatase 57 U/L (39-117); Anion Gap 16 (12-20); Aspartate Amino Transferase 128 U/L (5-31); Blood Urea Nitrogen 19 mg/dL (9-16); Calcium 9.7 mg/dL (8.4-10.2); Carbon Dioxide 25 mmol/L (22-29); Chloride 103 mmol/L (96-108); Creatinine Clr Calc Pharmacy 102.3; Estimated Glomerular Filt Rate > 60; Magnesium 1.5 mg/dL (1.6-2.6); Potassium 3.9 mmol/L (3.3-5.1); Sodium 140 mmol/L (135-145); Total Protein 7.3 g/dL (6.5-8.0)
--- NOTE | 2025-03-04 13:55 | ED.GENADULT ---
HPI - General Adult General Chief complaint: Dyspnea Stated complaint: Trouble Breathing Time Seen by Provider: 03/04/25 13:18 Source: patient and family Mode of arrival: ambulatory Limitations: no limitations History of Present Illness ED Provider: KASSIDY RODRIGUEZ PA-C HPI narrative: 59 year old female with pmhx significant for DM, HTN, HLD, asthma, tobacco dependence 20 pack year history. presents to the ED today for evaluation of feeling generally unwell x1 week. Reports headache, fatigue, cough productive of yellow/clear sputum, and subjective fevers. Her granddaughter was recently ill with a URI. She presented to today for symptoms - she was given two doses of albuterol however was still noted to be hypoxic. She was sent to the ED for further evaluation. Denies headache, dizziness, vision changes, chest pain, palpitations, N/V/D, abd pain, LE pain/swelling. Related Data Home Medications ?Medication ?Instructions ?Recorded ?Confirmed budesonide-formoterol HFA 160 1 inh inhalation BID PRN Shortness 03/04/25 03/04/25 mcg-4.5 mcg/actuation aerosol Of Breath Or Wheezing inhaler (Symbicort) naproxen 250 mg tablet 250 mg PO DAILY 03/04/25 03/04/25 tirzepatide 2.5 mg/0.5 mL 2.5 mg subcut FR 03/04/25 03/04/25 subcutaneous pen injector (Mounjaro) Previous Rx's ?Medication ?Instructions ?Recorded blood sugar diagnostic (FreeStyle #200 ea 10/06/23 Lite Strips) albuterol sulfate 90 mcg/actuation 2 puff inhalation Q6H PRN 07/15/24 aerosol inhaler shortness of breath or wheezing 90 days #8.5 grams cetirizine 10 mg tablet (All Day 10 mg PO DAILY PRN allergy 07/15/24 Allergy (cetirizine)) symptoms 90 days #90 tabs fluticasone propionate 50 1 spray intranasal Q12H 30 days 07/15/24 mcg/actuation nasal #16 grams spray,suspension (Flonase Allergy Relief) atorvastatin 10 mg tablet 10 mg PO DAILY 90 days #90 tabs 01/31/25 azithromycin 250 mg tablet See Rx Instructions PO .COMPLEX #6 03/01/25 tabs Allergies Allergy/AdvReac Type Severity Reaction Status Date / Time empagliflozin (From AdvReac Intermediate Rash Verified 03/04/25 13:09 Jardiance) Review of Systems Review of Systems: Yes all other systems are reviewed and are negative REPLACED BY [facility] Past Medical History Attestation statement: The following information was validated with the patient. Source: old records reviewed and nursing notes reviewed Medical History Asthma Elevated cholesterol Hx of diverticulitis of colon Diverticulitis Diabetes Surgical History H/O tubal ligation H/O total knee replacement Family History Family History Mother Diabetes Maternal Grandmother Diabetes Social History Social History Housing: Apartment Alcohol intake: current Alcohol intake frequency: 3 or more drinks per day Alcohol type: hard liquor Comment: 1/2 pint of vodka every other day Patient Tobacco Use Status: Current everyday Tobacco user Cigarettes Per Day: 8 Smoked in Last 30 Days: Yes e-Cigarette/Vaping Use: Never Used Use of substances other than those prescribed or required for medical reasons: No Advance Directives: Yes Advance Directives Information Provided: No Advance Directives on File: No Do you have a plan to hurt others: No Plan Nutrition Risks: No Nutritional Risk Patient : No service: No Current occupational status: employed 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 Cognitive needs: No Hearing needs: No Vision needs: No Physical Exam ED Vital Signs: Vital Signs - 24 hr 03/04/25 13:04 03/04/25 14:16 03/04/25 14:31 Temperature 97.8 F 98.2 F Pulse Rate 120 H 102 H 101 H Respiratory Rate 24 H 24 H 21 H Blood Pressure 188/95 H 160/78 H Pulse Oximetry 87 L 92 Oxygen Delivery Method Room Air Oxymask Oxygen Flow Rate 4 03/04/25 15:51 Temperature Pulse Rate 123 H Respiratory Rate 33 H Blood Pressure 166/91 H Pulse Oximetry 92 Oxygen Delivery Method Oxymask Oxygen Flow Rate 4 BMI result Body Mass Index 32.0 Tachycardic, tachypneic, hypertensive, satting 92% on 4 L OxyMask General: ill apperaing however in NAD Skin: Warm, dry, intact. No rashes or lesions. Head: Normocephalic, atraumatic. EENT: Hearing is intact b/l. Conjunctiva clear. PERRLA. EOM intact. Moist mucous membranes.? Neck: Supple without LAD Cardiac: Chest wall symmetric. RRR Lungs: No respiratory distress, no tripoding, congested cough, lung sounds diminished throughout with diffuse expiratory wheezes Abdomen: soft, non-tender, non-distended. No rebound tenderness or guarding. Positive BS x4. Back: No midline spinous or paraspinal tenderness. No step off deformity. Ext: resting tremors, no pitting edema, no calf tenderness bilaterally Neuro: AOx3. Normal speech. Ambulating with steady gait. Course Course Course Narrative: CBC without leukocytosis. There is neutrophil predominance. H&H above transfusion threshold. Chemistry showing mild hypomagnesemia to 1.5, potassium WNL. no KATHERINE. Random glucose 160, no anion gap. Liver function around baseline. Troponin WNL. Lactic WNL. Blood cultures pending. Urine without infection. Urine toxicology positive for marijuana. Patient tested positive for influenza A, negative RSV, COVID. Chest x-ray without infiltrate or consolidation to suggest pneumonia. I obtained a CTA chest which reveals subtle filling defect in the segmental vessel to the right lower lobe suspicious for PE. There is also a solid mass in the anterior/superior mediastinum measuring 3.3 x 6.6 cm, indeterminate however differential consideration should include malignancy given patient's history of tobacco dependence. There are also linear atelectasis/inflammatory changes to the left lung base. > patient medicated with albuterol, IV solumedrol, magnesium, ceftriaxone > discussed all workup results with patient. I informed her of CTA results. She will need to be started on a blood thinner. I also informed her of incidental findings of mediastinal mass, concerning for malignancy. > given hypoxic respiratory failure in setting of asthma and influenza a with additional diagnoses of PE and mediastinal mass, patient will require admission to medicine. I did discuss with hostpialist enrrique jeffers who has accepted admisison. Medications Administered Generic Name Dose Route Start Last Admin Trade Name Freq PRN Reason Stop Dose Admin Nicotine 14 mg 03/04/25 16:45 03/04/25 17:43 Nicotine 14 Mg Patch.Td24 TRANSDERMA Not Given DAILY IRENE Discontinued Medications Generic Name Dose Route Start Last Admin Trade Name Medq PRN Reason Stop Dose Admin Albuterol Sulfate 2.5 mg/ 0 mg 03/04/25 14:24 03/04/25 14:32 Albuterol/Ipratropium 3 ml INHALE 03/04/25 14:25 5.5 dose ONCE ONE Administration Enoxaparin Sodium 90 mg 03/04/25 17:00 03/04/25 17:43 Enoxaparin Sodium 100 Mg/Ml Syringe 1 mg/kg (90 mg) 03/04/25 17:01 90 mg SUBCUT Administration ONCE ONE Magnesium Sulfate 2 gm in 50 mls @ 150 mls/hr 03/04/25 13:28 03/04/25 13:54 Magnesium Sulfate/H2o IV 03/04/25 13:47 Infused ONCE ONE Infusion Ceftriaxone Sodium 1 gm/ 50 mls @ 100 mls/hr 03/04/25 13:56 03/04/25 15:05 Sodium Chloride IV 03/04/25 14:25 Infused ONCE ONE Infusion Iohexol 100 ml 03/04/25 14:45 03/04/25 14:45 Iohexol 350 Mg/Ml 100 Ml Infus..Btl IV 03/04/25 14:46 65 ml ONCE ONE Administration Methylprednisolone Sodium Succinate 60 mg 03/04/25 13:15 03/04/25 13:32 Methylprednisolone Sod Succ 125 Mg/2 Ml Vial IVPUSH 03/04/25 13:16 60 mg ONCE ONE Administration Medical Decision Making Medical Decision Making MDM Narrative: 59 year old female with pmhx significant for DM, HTN, HLD, asthma, tobacco dependence 20 pack year history. presents to the ED today for evaluation of feeling generally unwell x1 week. Patient is ill-appearing however in NAD. on exam, no respiratory distress, no tripoding, congested cough, lung sounds diminished throughout with diffuse expiratory wheezes. there is no pitting edema or calf tenderness b/l. Differential diagnosis includes viral syndrome, bronchitis, pneumonia, asthma exacerbation, COPD exacerbation, CHF, ACS, arrhythmia, malignancy, pleural effusion, PE Plan for viral swabs, labs, ekg, cxr, bronch tx, IV steroids, re-evaluation. Differential Diagnosis Differential Diagnoses: The differential diagnosis associated with the presentation includes as above. Admission/Observation Consideration of admission/observation: Escalation of care including admission/observation considered Patient admitted to medicine for evaluation of hypoxic respiratory failure in the setting of asthma and influenza Consult Healthcare Provider Management of the patient was discussed with: Hospitalist (aury) Lab Data MDM Lab Attestation statement: I reviewed the patient's lab results. as above. 03/04/25 13:26 03/04/25 13:26 Labs: Lab Results 03/04/25 03/04/25 03/04/25 Range/Units 13:21 13:26 13:32 WBC 5.9 (4.8-10.8) X10*3/uL RBC 5.11 (4.20-5.50) X10*6/uL Hgb 16.0 (12.0-16.0) g/dl Hct 47.4 H (37.0-47.0) % MCV 92.8 (80.0-98.0) fL MCH 31.3 (27.0-33.0) pg MCHC 33.8 (31.0-35.0) g/dl RDW 12.9 (11.0-16.0) % Plt Count 108 L (160-400) X10*3/uL MPV 11.0 (9.4-12.3) fL Immature Gran % (Auto) 0.2 (0.0-0.4) % Neut % (Auto) 81.4 H (45-73) % Lymph % (Auto) 13.8 L (20-40) % [place] % (Auto) 4.1 (2-11) % Eos % (Auto) 0.2 (0-4) % Baso % (Auto) 0.3 (0-2) % Lymph # (Auto) 0.8 L (1.2-4.9) X10*3/uL [place] # (Auto) 0.2 (0.1-1.2) X10*3/uL Eos # (Auto) 0.0 (0.0-0.4) X10*3/uL Baso # (Auto) 0.0 (0.0-0.2) X10*3/uL Abs Immat Gran (auto) 0.01 (0.00-0.03) X10*3/uL Absolute Neuts (auto) 4.8 (2.0-8.3) x10*3/uL Absolute Nucleated RBC 0.000 (0.0-0.012) X10*3/uL Nucleated RBC % (auto) 0.0 (0.0-0.2) /100WBC PT 13.8 H (11.2-13.5) SEC INR 1.1 (0.9-1.1) VBG pH 7.42 (7.32-7.43) VBG pCO2 42 mmHg VBG pO2 42 mmHg VBG HCO3 28 H (22-26) mmol/L VBG O2 Saturation 65.0 % VBG Base Excess 3.5 mmol/L Sodium 140 (135-145) mmol/L Potassium 3.9 (3.3-5.1) mmol/L Chloride 103 (96-108) mmol/L Carbon Dioxide 25 (22-29) mmol/L Anion Gap 16 (12-20) BUN 19 H (9-16) mg/dL Creatinine 0.66 (0.5-1.4) mg/dL Estim Creat Clear Calc 102.3 Estimated GFR > 60 Random Glucose 160 H (60-115) mg/dL Lactic Acid (0.5-2.0) mmol/L Calcium 9.7 (8.4-10.2) mg/dL Magnesium 1.5 L (1.6-2.6) mg/dL Total Bilirubin 0.6 (0.0-1.0) mg/dL AST 128 H (5-31) U/L ALT 134 H (0-31) U/L Alkaline Phosphatase 57 (39-117) U/L Troponin I High Sens < 2.7 (<3.5-17.0) ng/L Total Protein 7.3 (6.5-8.0) g/dL Albumin 4.4 (3.5-5.0) g/dL Urine Color Urine Appearance Urine pH (5.0-9.0) Ur Specific [place] (1.005-1.025) Urine Protein (Neg-Trace) mg/dL Urine Glucose (UA) (Negative) mg/dL Urine Ketones (Negative) mg/dL Urine Blood (Negative) Urine Nitrite (Negative) Ur Leukocyte Esterase (Negative) Urine Opiates Screen (Not Detect) Ur Buprenorphine Scrn (Not Detect) ng/mL Ur Oxycodone Screen (Not Detect) ng/mL Urine Methadone Screen (Not Detect) ng/mL Urine Fentanyl Screen (Not Detect) Ur Barbiturates Screen (Not Detect) Ur Phencyclidine Scrn (Not Detect) Ur Amphetamines Screen (Not Detect) U Benzodiazepines Scrn (Not Detect) Urine Cocaine Screen (Not Detect) U Marijuana (THC) Screen (Not Detect) Influenza Type A (PCR) POSITIVE A (Negative) Influenza Type B (PCR) NEGATIVE (Negative) RSV RNA Qual (PCR) NEGATIVE (Negative) SARS-CoV-2 RNA (RT-PCR) NEGATIVE (Negative) 03/04/25 03/04/25 Range/Units 14:28 15:53 WBC (4.8-10.8) X10*3/uL RBC (4.20-5.50) X10*6/uL Hgb (12.0-16.0) g/dl Hct (37.0-47.0) % MCV (80.0-98.0) fL MCH (27.0-33.0) pg MCHC (31.0-35.0) g/dl RDW (11.0-16.0) % Plt Count (160-400) X10*3/uL MPV (9.4-12.3) fL Immature Gran % (Auto) (0.0-0.4) % Neut % (Auto) (45-73) % Lymph % (Auto) (20-40) % [place] % (Auto) (2-11) % Eos % (Auto) (0-4) % Baso % (Auto) (0-2) % Lymph # (Auto) (1.2-4.9) X10*3/uL [place] # (Auto) (0.1-1.2) X10*3/uL Eos # (Auto) (0.0-0.4) X10*3/uL Baso # (Auto) (0.0-0.2) X10*3/uL Abs Immat Gran (auto) (0.00-0.03) X10*3/uL Absolute Neuts (auto) (2.0-8.3) x10*3/uL Absolute Nucleated RBC (0.0-0.012) X10*3/uL Nucleated RBC % (auto) (0.0-0.2) /100WBC PT (11.2-13.5) SEC INR (0.9-1.1) VBG pH (7.32-7.43) VBG pCO2 mmHg VBG pO2 mmHg VBG HCO3 (22-26) mmol/L VBG O2 Saturation % VBG Base Excess mmol/L Sodium (135-145) mmol/L Potassium (3.3-5.1) mmol/L Chloride (96-108) mmol/L Carbon Dioxide (22-29) mmol/L Anion Gap (12-20) BUN (9-16) mg/dL Creatinine (0.5-1.4) mg/dL Estim Creat Clear Calc Estimated GFR Random Glucose (60-115) mg/dL Lactic Acid 1.7 (0.5-2.0) mmol/L Calcium (8.4-10.2) mg/dL Magnesium (1.6-2.6) mg/dL Total Bilirubin (0.0-1.0) mg/dL AST (5-31) U/L ALT (0-31) U/L Alkaline Phosphatase (39-117) U/L Troponin I High Sens (<3.5-17.0) ng/L Total Protein (6.5-8.0) g/dL Albumin (3.5-5.0) g/dL Urine Color Yellow Urine Appearance Clear Urine pH 5.5 (5.0-9.0) Ur Specific [place] >= 1.030 H (1.005-1.025) Urine Protein Trace (Neg-Trace) mg/dL Urine Glucose (UA) Negative (Negative) mg/dL Urine Ketones Trace (Negative) mg/dL Urine Blood Negative (Negative) Urine Nitrite Negative (Negative) Ur Leukocyte Esterase Negative (Negative) Urine Opiates Screen Not Detected (Not Detect) Ur Buprenorphine Scrn Not Detected (Not Detect) ng/mL Ur Oxycodone Screen Not Detected (Not Detect) ng/mL Urine Methadone Screen Not Detected (Not Detect) ng/mL Urine Fentanyl Screen Not Detected (Not Detect) Ur Barbiturates Screen Not Detected (Not Detect) Ur Phencyclidine Scrn Not Detected (Not Detect) Ur Amphetamines Screen Not Detected (Not Detect) U Benzodiazepines Scrn Not Detected (Not Detect) Urine Cocaine Screen Not Detected (Not Detect) U Marijuana (THC) Screen POSITIVE H (Not Detect) Influenza Type A (PCR) (Negative) Influenza Type B (PCR) (Negative) RSV RNA Qual (PCR) (Negative) SARS-CoV-2 RNA (RT-PCR) (Negative) Independent Interpretation I performed an independent interpretation of an: EKG, Plain X-Ray and CT Scan Interpretation: EKG showing sinus tachycardia with a rate of 111 beats per minute, QT 326, QTC 443, no acute ischemic changes or ST elevations cxr withou infiltrate or consolidation cta chest showing mass to right lobe Radiology Impression Discussion of test interpretation with radiology: I have reviewed the radiologist's reading. Radiologist Impression: Procedure(s): CT angio chest PE protocol Accession Number(s): [id number] cc: Aakash Azar MD; Kassidy Rodriguez~ Report Number: [id number]: Total DLP = 398.00 mGy-cm Reason for Exam: hypoxic EXAMINATION: CT ANGIOGRAM OF THE CHEST WITH AND WITHOUT CONTRAST (CT PULMONARY ANGIOGRAM FOR PE) CLINICAL INFORMATION: hypoxic COMPARISON: No pertinent prior studies are available for comparison. TECHNIQUE: Prior to contrast administration, noncontrast localization images were obtained. Subsequently, multidetector volumetric imaging was performed from the thoracic inlet to below the diaphragms following the administration of 65 mL Omnipaque 350 intravenous contrast. No contrast reaction reported Sagittal, coronal, and MIP oblique sagittal reformatted images were obtained on the CT workstation, uploaded to PACS, and reviewed. Total exam dose-length product 654 mGy-cm FINDINGS: QUALITY OF STUDY/CONTRAST BOLUS: Satisfactory. PULMONARY ARTERIES: There is subtle small filling defect in the segmental vessel to the right lower lobe, suspicious for small pulmonary embolism. (Series 8:83-84). No additional significant filling defects identified. THORACIC AORTA: No aneurysm. LUNG: Linear opacities in the lingula and left lower lobe could reflect atelectasis or inflammatory process. No suspicious nodules are seen. Trachea and central airway are patent. PLEURA: No pleural effusion or pneumothorax. MEDIASTINUM: There is a mass in the anterior/superior mediastinum. Measures up to 3.3 x 3.3 x 6.6 cm (AP x ML x CC) Hounsfield measurements 54. This mass is indeterminate. Normal heart size. No pericardial effusion. There is soft tissue fullness along the right lateral aspect of the trachea, which could represent a distended vessel, adenopathy/mass cannot be excluded. For example image 8:48. No bulky hilar adenopathy seen. CORONARY ARTERY CALCIFICATION: Present CHEST WALL/AXILLA: No axillary or internal mammary lymphadenopathy. OSSEOUS STRUCTURES: No acute or suspicious osseous abnormality. UPPER ABDOMEN: Unremarkable. No reflux of contrast into the hepatic veins to suggest elevated right heart pressures. CT/CT angio chest PE protocol IMPRESSION: * Subtle filling defect in the segmental vessel to the right lower lobe, suspicious for pulmonary embolism. * There is a solid mass in the anterior/superior mediastinum measuring 3.3 x 3.3 x 6.6 cm. This mass is indeterminate. Differential considerations include neoplastic etiologies. Correlate with patient's clinical history, prior imaging. Recommend workup of the mass, options including MRI evaluation. *Linear atelectasis/inflammatory process in the left lung as detailed above. VTE: negative This result was discussed with Charity Cole at 3:35 PM on 03/04/2025 and it was ascertained that the content and urgency of the report was understood at the time of direct communication. Electronically signed by: Dominick Bennett MD 03/04/2025 03:37 PM [facility] [place](s): XR chest 1V Accession Number(s): [id number] cc: Charity Cole; Aakash Azar MD~ Reason for Exam: SOB EXAMINATION: XR CHEST CLINICAL INFORMATION: SOB COMPARISON: Chest 03/03/2025 TECHNIQUE: Frontal view of the chest was obtained. FINDINGS: The lungs are well-expanded and clear of acute process. The heart size and pulmonary vascularity is normal. No gross bony abnormality seen. XR/XR chest 1V IMPRESSION: Unremarkable chest exam. Independent Historian Clinical information obtained from an independent historian. History obtained from or confirmed by: Spouse External Record Review External record reviewed: Inpatient record, Office record and Outpatient record Prescription Management I considered prescription management with: Pain Medication and Antibiotic Chronic Conditions Patient?s care impacted by: Diabetes, Hypertension and Other (tobacco dependence) Social Determinants Patient?s care significantly limited by Social Determinants of Health including: Other Social Determinant of Health Critical Care Time Critical Care Time Critical Care Time: Yes Total Critical Care Time: 45 Attestation: Critical care time in the amount of 45 minutes has been provided to the patient in terms of direct patient care, frequent reevaluation, consultation with hospitalist, review and interpretation of medical data and results, and management of potentially life-threatening conditions. This is all outside of any medical procedures. Discharge Plan Discharge Clinical Impression: Acute hypoxic respiratory failure, Asthma exacerbation, Pulmonary embolism, Mediastinal mass, Hypomagnesemia Patient Disposition: Admitted As Inpatient Interventions: Admission Worksheet (ED) Last Done: 03/04/25 17:35
[2025-03-04 13:57] LABS: Troponin-I High Sensitivity < 2.7 ng/L (<3.5-17.0)
[2025-03-04 14:29] LABS: Resp Syncy Virus RNA Qual PCR NEGATIVE (Negative); SARS COV2 PCR INHOUSE NEGATIVE (Negative)
[2025-03-04] MEDS: Albuterol Sulfate 2.5 MG, Albuterol/Iprat 2.5/0.5MG 3 ML 3 ML INHALE (14:32)
[2025-03-04] MEDS: iohexoL 350 MG/ML 100 ML INFUS..BTL IV (14:45)
[2025-03-04 15:59] LABS: Appearance Urine Clear; Glucose Urine UA Negative (Negative); PH 5.5 (5.0-9.0); Specific Gravity - Urine >= 1.030 (1.005-1.025)
--- NOTE | 2025-03-04 16:45 | P.HPHOSP_ITS ---
History of Present Illness Date of Service: 03/04/25 Attending physician on admission: Alcira Mejia Chief Complaint: shortness of breath This is a 59 year old female who presents to the ED with shortness of breath. Patient presents to the emergency department with nearly one-week history of shortness of breath. She reports initially she began having fever dry cough headache pain with coughing. After the 1st few days her fever resolved but she continued to have persistent cough and developed shortness of breath even at rest. She has been trying to use her inhalers but has been having difficulty even taking a big enough breath to use her inhalers at home. Today she presented to urgent care where she received oral prednisone and DuoNeb breathing treatment but based on physical exam and borderline oxygen saturation she was referred to the emergency department. On arrival in the emergency department she was hypertensive, tachycardic, tachypneic as well as hypoxic with an oxygen saturation of 87% on room air. She was placed on 4 L OxyMask. She received multiple breathing treatments as well as IV steroids. Magnesium levels noted to be low which was replaced with IV magnesium. Chest x-ray was unremarkable, she underwent CTA which showed a subtle filling defect in the segmental vessel to the right lower lobe suspicious for pulmonary embolism. In addition there was a solid mass in the anterior/superior mediastinum measuring 3.3 x 3.3 x 6.6 cm which was considered indeterminate but concerning for neoplastic etiology. Her serology was also positive for influenza A. Patient was also noted to be tremulous, she reports having chronic bilateral upper extremity tremor which runs in her family. She did however endorse drinking half a pt of alcohol every other day with her last drink several days ago with the exception of 1 shot last night. She denies any change in her tremors and denies history of alcohol withdrawal. She will be admitted for further management of acute respiratory failure Review of Systems 2 Review of Systems: Yes all other systems are reviewed and are negative Constitutional: Constitutional: Reports chills and Denies fever(s) Cardiovascular: Cardiovascular: Reports dyspnea Respiratory: Respiratory: Reports cough and Reports dyspnea [facility] Medical History Asthma Elevated cholesterol Hx of diverticulitis of colon Diverticulitis Diabetes Family History Mother Diabetes Maternal Grandmother Diabetes Surgical History H/O tubal ligation H/O total knee replacement Social History (Updated 03/04/25 @ 17:12 by ANAY Tinoco) Housing: Apartment Alcohol intake: current Alcohol intake frequency: 3 or more drinks per day Alcohol type: hard liquor Comment: 1/2 pint of vodka every other day Patient Tobacco Use Status: Current everyday Tobacco user Cigarettes Per Day: 8 e-Cigarette/Vaping Use: Never Used Advance Directives: Yes Advance Directives Information Provided: No Advance Directives on File: No Do you have a plan to hurt others: No Plan service: No Current occupational status: employed 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 Cognitive needs: No Hearing needs: No Vision needs: No Meds Allergies Allergy/AdvReac Type Severity Reaction Status Date / Time empagliflozin (From AdvReac Intermediate Rash Verified 03/04/25 13:09 Jardiance) Active Medications: Current Medications Acetaminophen (Acetaminophen 325 Mg Tablet) 650 mg PO Q6H PRN PRN Reason: Pain, Mild 1-3,fever,headache Apixaban (Apixaban 5 Mg Tablet) 10 mg PO BID [facility] Stop: 03/11/25 21:01 Calcium Carbonate (Calcium Carbonate 750 Mg Tab.Chew) 750 mg PO Q4H PRN PRN Reason: Heartburn Dextrose (Dextrose 50 % 25 Gm/50 Ml Syringe) 25 gm IVPUSH Q15M PRN; Protocol PRN Reason: per Hypoglycemia Standing Ord. Glucose (Glucose Gel 15 Gm Gel..Gram.) 15 gm PO Q15M PRN; Protocol PRN Reason: per Hypoglycemia Standing Ord. Insulin Human Lispro (Insulin Lispro 100 Unit/Ml 3 Ml Vial) 0 unit SUBCUT QIDACHS [facility]; Protocol Magnesium Hydroxide (Milk Of Magnesia 30 Ml Oral.Susp) 30 ml PO DAILY PRN PRN Reason: Constipation Melatonin (Melatonin 3 Mg Tablet) 6 mg PO BEDTIME PRN PRN Reason: Insomnia Sodium Chloride (0.9 % Sodium Chloride Flush 3 Ml Syringe) 3 ml IVFLUSH QSHIFT [facility] Physical Exam 2 Vital Signs and Narrative: Vital Signs: Last Vital Signs Temp 98.2 F 03/04/25 14:16 Pulse 123 H 03/04/25 15:51 Resp 33 H 03/04/25 15:51 BP 166/91 H 03/04/25 15:51 Pulse Ox 92 03/04/25 15:51 O2 Del Method Oxymask 03/04/25 15:51 O2 Flow Rate 4 03/04/25 15:51 BMI result Body Mass Index 32.0 Const: General: cooperative, alert and awake Nutritional Appearance: obese Orientation/consciousness: patient oriented x3 Resp: Other: tight with decreased air entry b/l and b/l wheeze; tachypnea Effort & Inspection: no use of accessory muscles Cardio: Rate: tachycardic GI: Inspection: No distended Palpation (GI): Soft to palpation Neuro: Other: b/l UE tremor (pt reports chronic) General: patient oriented x3, moves all extremities and CN's II-XI intact bilaterally Results Labs 03/04/25 13:26 03/04/25 13:26 Labs: Laboratory Results - last 24 hr 03/04/25 03/04/25 03/04/25 13:21 13:26 13:32 MCV 92.8 MCH 31.3 MCHC 33.8 RDW 12.9 Plt Count 108 L MPV 11.0 Immature Gran % (Auto) 0.2 Neut % (Auto) 81.4 H Lymph % (Auto) 13.8 L [place] % (Auto) 4.1 Eos % (Auto) 0.2 Baso % (Auto) 0.3 Lymph # (Auto) 0.8 L [place] # (Auto) 0.2 Eos # (Auto) 0.0 Baso # (Auto) 0.0 Abs Immat Gran (auto) 0.01 Absolute Neuts (auto) 4.8 Absolute Nucleated RBC 0.000 Nucleated RBC % (auto) 0.0 PT 13.8 H INR 1.1 VBG pH 7.42 VBG pCO2 42 VBG pO2 42 VBG HCO3 28 H VBG O2 Saturation 65.0 VBG Base Excess 3.5 Anion Gap 16 Estim Creat Clear Calc 102.3 Estimated GFR > 60 Random Glucose 160 H Lactic Acid Calcium 9.7 Magnesium 1.5 L Total Bilirubin 0.6 AST 128 H ALT 134 H Alkaline Phosphatase 57 Troponin I High Sens < 2.7 Total Protein 7.3 Albumin 4.4 Urine Color Urine Appearance Urine pH Ur Specific [place] Urine Protein Urine Glucose (UA) Urine Ketones Urine Blood Urine Nitrite Ur Leukocyte Esterase Influenza Type A (PCR) POSITIVE A Influenza Type B (PCR) NEGATIVE RSV RNA Qual (PCR) NEGATIVE SARS-CoV-2 RNA (RT-PCR) NEGATIVE 03/04/25 03/04/25 14:28 15:53 MCV MCH MCHC RDW Plt Count MPV Immature Gran % (Auto) Neut % (Auto) Lymph % (Auto) [place] % (Auto) Eos % (Auto) Baso % (Auto) Lymph # (Auto) [place] # (Auto) Eos # (Auto) Baso # (Auto) Abs Immat Gran (auto) Absolute Neuts (auto) Absolute Nucleated RBC Nucleated RBC % (auto) PT INR VBG pH VBG pCO2 VBG pO2 VBG HCO3 VBG O2 Saturation VBG Base Excess Anion Gap Estim Creat Clear Calc Estimated GFR Random Glucose Lactic Acid 1.7 Calcium Magnesium Total Bilirubin AST ALT Alkaline Phosphatase Troponin I High Sens Total Protein Albumin Urine Color Yellow Urine Appearance Clear Urine pH 5.5 Ur Specific [place] >= 1.030 H Urine Protein Trace Urine Glucose (UA) Negative Urine Ketones Trace Urine Blood Negative Urine Nitrite Negative Ur Leukocyte Esterase Negative Influenza Type A (PCR) Influenza Type B (PCR) RSV RNA Qual (PCR) SARS-CoV-2 RNA (RT-PCR) Imaging Radiologist's Impressions: Impressions Chest X-Ray 03/04/25 13:33 IMPRESSION: Unremarkable chest exam. Electronically signed by: Dilan Lim MD 03/04/2025 01:42 PM EST RP Chest CTA 03/04/25 14:44 IMPRESSION: * Subtle filling defect in the segmental vessel to the right lower lobe, suspicious for pulmonary embolism. * There is a solid mass in the anterior/superior mediastinum measuring 3.3 x 3.3 x 6.6 cm. This mass is indeterminate. Differential considerations include neoplastic etiologies. Correlate with patient's clinical history, prior imaging. Recommend workup of the mass, options including MRI evaluation. *Linear atelectasis/inflammatory process in the left lung as detailed above. VTE: negative This result was discussed with Charity Cole at 3:35 PM on 03/04/2025 and it was ascertained that the content and urgency of the report was understood at the time of direct communication. Electronically signed by: Dominick Bennett MD 03/04/2025 03:37 PM EST RP Assessment and Plan (1) Pulmonary embolism: Status: Acute (2) Elevated liver enzymes: Status: Acute (3) Acute hypoxic respiratory failure: Status: Acute (4) Asthma exacerbation: Status: Acute (5) Mediastinal mass: Status: Acute Plan This is a 59-year-old female with history of type 2 diabetes, liver disease, ventral hernia, daily tobacco use, daily alcohol use who presents to the emergency department with shortness of breath found to have acute pulmonary embolism, lung mass, influenza a Acute respiratory failure with hypoxia Multifactorial due to influenza a, lung mass, asthma exacerbation, acute pulmonary embolism Continue supplemental oxygen, wean as tolerated Acute pulmonary embolism no evidence of right heart strain possibly due to lung mass Eliquis 10 bid x 7 days, then 5 bid Lung mass given smoking history concerning for malignancy will need outpatient follow up/biopsy Influenza a symptoms ongoing for nearly a week, tamiflu not likely to provide benefit symptomatic support Acute exacerbation of asthma IV steroids scheduled breathing treatments tobacco dependence Smoking cessation advised NRT alcohol dependence with risk for withdrawal denies h/o withdrawal and only one shot in the past 5-6 days chronic tremor. does not appear to be withdrawing at this time follow CIWA, if begins scoring would consider starting phenobarbitol protocol Supplementation with oral thiamine, folic acid Hypomagnesemia Replace and follow levels elevated LFTs due to underlying liver dz liver elastography from August 2024 showing compensated advanced liver dz trend LFTs thrombocytopenia no previous labs for comparison possibly chronic due to etoh use/liver dz monitor closely in light of anticoagulation morbid obesity BMI 32.0 on monjouro, has lost 6 pounds T2DM SSI, POCs, ADA diet hold MounLightswitchro med rec pending at the time of admission DVT prophylaxis-Eliquis Patient will likely require 2 midnight stay in the hospital for management of multiple acute medical issues contributing to acute respiratory failure requiring close cardiac and pulmonary monitoring as well as supplemental oxygen Which can not be achieved in a less acute setting Quality Stroke Does the patient have a stroke diagnosis?: No VTE Prior VTE?: No VTE Risk Level:: Medical - moderate - high VTE Device Contraindication: Treatment Not Indicated VTE Drug Contraindication: N/A - Med Ordered
--- NOTE | 2025-03-04 17:29 | PHA.MEDREC ---
Pharmacy Consult ? Medication Reconciliation Pharmacy has completed the medication reconciliation. Spoke to patient to confirm medication list. Per patient, she no longer takes metformin (stopped about 2 months ago) nor jardiance (due to allergic reaction). She is on day 4 of the zpak (took the dose this morning 03/04/25), she takes mounjaro on fridays but didn't take it today due to having surgery scheduled for upcoming friday. She takes 1 tablet of naproxen otc once a day for lower back pain. Last dose of medications was yesterday 03/03/25.
[2025-03-04 17:36] LABS: Cannabinoid Screen Urine POSITIVE (Not Detect)
[2025-03-04] MEDS: Albuterol/Iprat 2.5/0.5MG 3 ML AMPUL.NEB INHALE (19:44)
[2025-03-04 21:10] LABS: Glucose, Whole Blood 287 mg/dL (60-115)
[2025-03-05] VITALS (10 sets, daily range): BP systolic 102–156; BP diastolic 46–73; PULSE 64–91; RESP 16–18; TEMP 36.1–36.7; O2SAT 91–96
[2025-03-05 06:11] LABS: MANUAL DIFF FLAG NO
[2025-03-05 06:20] LABS: Hematocrit 41.9 % (37.0-47.0); Hemoglobin 14.1 g/dl (12.0-16.0); Imm Gran Abs Auto 0.02 X10*3/uL (0.00-0.03); Imm Gran Pct Auto 0.3 % (0.0-0.4); Lymphocytes Absolute Auto 0.9 X10*3/uL (1.2-4.9); Mean Corpuscular HGB Conc 33.7 g/dl (31.0-35.0); Mean Corpuscular Hemoglobin 31.1 pg (27.0-33.0); Mean Corpuscular Volume 92.5 fL (80.0-98.0); NRBC Abs Auto 0.000 X10*3/uL (0.0-0.012); NRBC Pct Auto 0.0 /100WBC (0.0-0.2); Platelet Count 107 X10*3/uL (160-400); Red Blood Count 4.53 X10*6/uL (4.20-5.50); White Blood Count 5.9 X10*3/uL (4.8-10.8)
[2025-03-05 06:36] LABS: Anion Gap 11 (12-20); Blood Urea Nitrogen 15 mg/dL (9-16); Calcium 9.5 mg/dL (8.4-10.2); Carbon Dioxide 28 mmol/L (22-29); Chloride 104 mmol/L (96-108); Creatinine Clr Calc Pharmacy 120.5; Estimated Glomerular Filt Rate > 60; Magnesium 2.0 mg/dL (1.6-2.6); Potassium 4.1 mmol/L (3.3-5.1); Sodium 139 mmol/L (135-145)
[2025-03-05 07:33] LABS: Glucose, Whole Blood 175 mg/dL (60-115)
--- NOTE | 2025-03-05 07:33 | HO.PM.IMPN ---
Subjective Subjective Date of Service: 03/05/25 Interval History: Patient continues to develop pulmonary edema and we will increase Lasix dose to 80 IV b.i.d. Review of Systems Review of Systems: Yes all other systems are reviewed and are negative Physical Exam Exam: Exam: General: AOx3, mild respiratory distress on 2 L nasal cannula, mildly obese Resp: Bilateral wheezing noted CVS: S1, S2, RRR GI: +BS, NT, no distention Neuro: Motor grossly intact bilaterally Vital Signs: Vital Signs: Last Vital Signs Temp 97.4 F 03/05/25 03:41 Pulse 64 03/05/25 03:41 Resp 18 03/05/25 03:41 BP 151/73 H 03/05/25 03:41 Pulse Ox 94 03/05/25 03:41 O2 Del Method Nasal Cannula 03/05/25 03:41 O2 Flow Rate 4 03/05/25 03:41 BMI result Body Mass Index 32.0 Objective Data Active Medications Acetaminophen (Acetaminophen 325 Mg Tablet) 650 mg PO Q6H PRN PRN Reason: Pain, Mild 1-3,fever,headache Albuterol/Ipratropium (Albuterol/Iprat 2.5/0.5mg 3 Ml Ampul.Neb) 3 ml INHALE RQ4H WHILE AWAKE [facility], [facility] Last Admin: 03/04/25 19:44 Dose: 3 ml Documented By: VEL Apixaban (Apixaban 5 Mg Tablet) 10 mg PO BID [facility] Stop: 03/11/25 21:01 Benzocaine (Throat Lozenge, Medicated Lozenge) 1 lozenge MUCOUS MEM Q2H PRN PRN Reason: Sore Throat Calcium Carbonate (Calcium Carbonate 750 Mg Tab.Chew) 750 mg PO Q4H PRN PRN Reason: Heartburn Dextrose (Dextrose 50 % 25 Gm/50 Ml Syringe) 25 gm IVPUSH Q15M PRN; Protocol PRN Reason: per Hypoglycemia Standing Ord. Fluticasone Propionate (Fluticasone Propionate Nasal 16 Gm [place]) 1 spray NOSTRIL-B BID [facility], [facility] Last Admin: 03/04/25 22:07 Dose: 1 spray Documented By: JAN Folic Acid (Folic Acid 1 Mg Tablet) 1 mg PO DAILY [facility] Glucose (Glucose Gel 15 Gm Gel..Gram.) 15 gm PO Q15M PRN; Protocol PRN Reason: per Hypoglycemia Standing Ord. Guaifenesin/Dextromethorphan (Guaifenesin Dm 100/10/5 Ml 5 Ml Syrup) 5 ml PO Q4H PRN PRN Reason: Cough Insulin Human Lispro (Insulin Lispro 100 Unit/Ml 3 Ml Vial) 0 unit SUBCUT QIDACHS [facility], [facility]; Protocol Last Admin: 03/04/25 21:41 Dose: 6 unit Documented By: JAN Levalbuterol HCl (Levalbuterol Hcl 1.25 Mg/3 Ml Vial.Neb) 1.25 mg INHALE Q4H PRN PRN Reason: Shortness of Breath/Wheezing Magnesium Hydroxide (Milk Of Magnesia 30 Ml Oral.Susp) 30 ml PO DAILY PRN PRN Reason: Constipation Melatonin (Melatonin 3 Mg Tablet) 6 mg PO BEDTIME PRN PRN Reason: Insomnia Methylprednisolone Sodium Succinate (Methylprednisolone Sod Succ 40 Mg/Ml Vial) 40 mg IVPUSH Q12H [facility] Last Admin: 03/05/25 00:11 Dose: 40 mg Documented By: JAN Nicotine (Nicotine 14 Mg Patch.Td24) 14 mg TRANSDERMA DAILY [facility] Last Admin: 03/04/25 17:43 Dose: Not Given Documented By: HENRIQUE Non-Admin Reason: Patient Refused Sodium Chloride (0.9 % Sodium Chloride Flush 3 Ml Syringe) 3 ml IVFLUSH QSHIFT [facility] Last Admin: 03/04/25 23:12 Dose: Not Given Documented By: JAN Non-Admin Reason: Previously Administered Thiamine HCl (Thiamine Hcl 100 Mg Tablet) 100 mg PO DAILY [facility] Labs 03/05/25 05:52 03/05/25 05:52 Labs: Laboratory Results - last 24 hr 03/04/25 03/04/25 03/04/25 13:21 13:26 13:32 MCV 92.8 MCH 31.3 MCHC 33.8 RDW 12.9 Plt Count 108 L MPV 11.0 Immature Gran % (Auto) 0.2 Neut % (Auto) 81.4 H Lymph % (Auto) 13.8 L [place] % (Auto) 4.1 Eos % (Auto) 0.2 Baso % (Auto) 0.3 Lymph # (Auto) 0.8 L [place] # (Auto) 0.2 Eos # (Auto) 0.0 Baso # (Auto) 0.0 Abs Immat Gran (auto) 0.01 Absolute Neuts (auto) 4.8 Absolute Nucleated RBC 0.000 Nucleated RBC % (auto) 0.0 PT 13.8 H INR 1.1 VBG pH 7.42 VBG pCO2 42 VBG pO2 42 VBG HCO3 28 H VBG O2 Saturation 65.0 VBG Base Excess 3.5 Anion Gap 16 Estim Creat Clear Calc 102.3 Estimated GFR > 60 POC Glucose Random Glucose 160 H Lactic Acid Calcium 9.7 Magnesium 1.5 L Total Bilirubin 0.6 AST 128 H ALT 134 H Alkaline Phosphatase 57 Troponin I High Sens < 2.7 Total Protein 7.3 Albumin 4.4 Urine Color Urine Appearance Urine pH Ur Specific [place] Urine Protein Urine Glucose (UA) Urine Ketones Urine Blood Urine Nitrite Ur Leukocyte Esterase Urine Opiates Screen Ur Buprenorphine Scrn Ur Oxycodone Screen Urine Methadone Screen Urine Fentanyl Screen Ur Barbiturates Screen Ur Phencyclidine Scrn Ur Amphetamines Screen U Benzodiazepines Scrn Urine Cocaine Screen U Marijuana (THC) Screen Influenza Type A (PCR) POSITIVE A Influenza Type B (PCR) NEGATIVE RSV RNA Qual (PCR) NEGATIVE SARS-CoV-2 RNA (RT-PCR) NEGATIVE 03/04/25 03/04/25 03/04/25 14:28 15:53 20:39 MCV MCH MCHC RDW Plt Count MPV Immature Gran % (Auto) Neut % (Auto) Lymph % (Auto) [place] % (Auto) Eos % (Auto) Baso % (Auto) Lymph # (Auto) [place] # (Auto) Eos # (Auto) Baso # (Auto) Abs Immat Gran (auto) Absolute Neuts (auto) Absolute Nucleated RBC Nucleated RBC % (auto) PT INR VBG pH VBG pCO2 VBG pO2 VBG HCO3 VBG O2 Saturation VBG Base Excess Anion Gap Estim Creat Clear Calc Estimated GFR POC Glucose 287 H Random Glucose Lactic Acid 1.7 Calcium Magnesium Total Bilirubin AST ALT Alkaline Phosphatase Troponin I High Sens Total Protein Albumin Urine Color Yellow Urine Appearance Clear Urine pH 5.5 Ur Specific [place] >= 1.030 H Urine Protein Trace Urine Glucose (UA) Negative Urine Ketones Trace Urine Blood Negative Urine Nitrite Negative Ur Leukocyte Esterase Negative Urine Opiates Screen Not Detected Ur Buprenorphine Scrn Not Detected Ur Oxycodone Screen Not Detected Urine Methadone Screen Not Detected Urine Fentanyl Screen Not Detected Ur Barbiturates Screen Not Detected Ur Phencyclidine Scrn Not Detected Ur Amphetamines Screen Not Detected U Benzodiazepines Scrn Not Detected Urine Cocaine Screen Not Detected U Marijuana (THC) Screen POSITIVE H Influenza Type A (PCR) Influenza Type B (PCR) RSV RNA Qual (PCR) SARS-CoV-2 RNA (RT-PCR) 03/05/25 05:52 MCV 92.5 MCH 31.1 MCHC 33.7 RDW 12.7 Plt Count 107 L MPV 11.4 Immature Gran % (Auto) 0.3 Neut % (Auto) 82.3 H Lymph % (Auto) 14.8 L [place] % (Auto) 2.6 Eos % (Auto) 0.0 Baso % (Auto) 0.0 Lymph # (Auto) 0.9 L [place] # (Auto) 0.2 Eos # (Auto) 0.0 Baso # (Auto) 0.0 Abs Immat Gran (auto) 0.02 Absolute Neuts (auto) 4.8 Absolute Nucleated RBC 0.000 Nucleated RBC % (auto) 0.0 PT INR VBG pH VBG pCO2 VBG pO2 VBG HCO3 VBG O2 Saturation VBG Base Excess Anion Gap 11 L Estim Creat Clear Calc 120.5 Estimated GFR > 60 POC Glucose Random Glucose 180 H Lactic Acid Calcium 9.5 Magnesium 2.0 Total Bilirubin AST ALT Alkaline Phosphatase Troponin I High Sens Total Protein Albumin Urine Color Urine Appearance Urine pH Ur Specific [place] Urine Protein Urine Glucose (UA) Urine Ketones Urine Blood Urine Nitrite Ur Leukocyte Esterase Urine Opiates Screen Ur Buprenorphine Scrn Ur Oxycodone Screen Urine Methadone Screen Urine Fentanyl Screen Ur Barbiturates Screen Ur Phencyclidine Scrn Ur Amphetamines Screen U Benzodiazepines Scrn Urine Cocaine Screen U Marijuana (THC) Screen Influenza Type A (PCR) Influenza Type B (PCR) RSV RNA Qual (PCR) SARS-CoV-2 RNA (RT-PCR) Assessment and Plan (1) Acute hypoxic respiratory failure: Status: Acute Assessment and Plan: 59-year-old female with history of type 2 diabetes, liver disease, ventral hernia, daily tobacco use, daily alcohol use who presents to the emergency department with shortness of breath found to have acute pulmonary embolism, lung mass, influenza a Acute respiratory failure with hypoxia Multifactorial due to influenza a, lung mass, asthma exacerbation, acute pulmonary embolism Continue supplemental oxygen, wean as tolerated Acute pulmonary embolism no evidence of right heart strain possibly due to lung mass Eliquis 10 bid x 7 days, then 5 bid Lung mass given smoking history concerning for malignancy will need outpatient follow up/biopsy Influenza a symptoms ongoing for nearly a week, tamiflu not likely to provide benefit symptomatic support Acute exacerbation of asthma IV steroids scheduled breathing treatments tobacco dependence Smoking cessation advised NRT alcohol dependence with risk for withdrawal denies h/o withdrawal and only one shot in the past 5-6 days chronic tremor. does not appear to be withdrawing at this time follow CIWA, if begins scoring would consider starting phenobarbitol protocol Supplementation with oral thiamine, folic acid Hypomagnesemia Replaced with IV mg and follow levels elevated LFTs due to underlying liver dz liver elastography from August 2024 showing compensated advanced liver dz trend LFTs thrombocytopenia no previous labs for comparison possibly chronic due to etoh use/liver dz monitor closely in light of anticoagulation morbid obesity BMI 32.0 on monjouro, has lost 6 pounds T2DM SSI, POCs, ADA diet hold [employer] med rec pending at the time of admission [facility] Patient will likely require continued hospital stay for management of multiple acute medical issues contributing to acute respiratory failure requiring close cardiac and pulmonary monitoring as well as supplemental oxygen Which can not be achieved in a less acute setting Quality Stroke Does the patient have a stroke diagnosis?: No VTE Prior VTE?: No VTE Risk Level:: Medical - moderate - high VTE Device Contraindication: Treatment Not Indicated VTE Drug Contraindication: N/A - Med Ordered
[2025-03-05] MEDS: Albuterol/Iprat 2.5/0.5MG 3 ML AMPUL.NEB INHALE ×4 (08:14→19:36)
--- NOTE | 2025-03-05 09:00 | MHC.CM.PN ---
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 She will self transport home, care in lot.
[2025-03-05] MEDS: 0.9 % Sodium Chloride Flush 3 ML SYRINGE IVFLUSH ×2 (09:30→20:25)
[2025-03-05 11:39] LABS: Glucose, Whole Blood 185 mg/dL (60-115)
[2025-03-05 16:27] LABS: Glucose, Whole Blood 209 mg/dL (60-115)
[2025-03-05 19:31] LABS: Glucose, Whole Blood 229 mg/dL (60-115)
[2025-03-06] VITALS (10 sets, daily range): BP systolic 107–153; BP diastolic 60–76; PULSE 52–97; RESP 16–20; TEMP 36.1–36.6; O2SAT 90–97
[2025-03-06 07:33] LABS: MANUAL DIFF FLAG NO
--- NOTE | 2025-03-06 07:33 | HO.PM.IMPN ---
Subjective Subjective Date of Service: 03/06/25 Interval History: Improving Lasix dose to 80 IV b.i.d. Review of Systems Review of Systems: Yes all other systems are reviewed and are negative Physical Exam Exam: Exam: General: AOx3, mild respiratory distress on 2 L nasal cannula, mildly obese Resp: Bilateral wheezing noted CVS: S1, S2, RRR GI: +BS, NT, no distention Neuro: Motor grossly intact bilaterally Vital Signs: Vital Signs: Last Vital Signs Temp 97.0 F 03/06/25 02:06 Pulse 52 03/06/25 02:06 Resp 17 03/06/25 02:06 BP 145/70 H 03/06/25 02:06 Pulse Ox 97 03/06/25 02:06 O2 Del Method Nasal Cannula 03/06/25 02:06 O2 Flow Rate 4 03/06/25 02:06 BMI result Body Mass Index 32.0 Objective Data Active Medications Acetaminophen (Acetaminophen 325 Mg Tablet) 650 mg PO Q6H PRN PRN Reason: Pain, Mild 1-3,fever,headache Last Admin: 03/05/25 16:51 Dose: 650 mg Documented By: JORGE Albuterol/Ipratropium (Albuterol/Iprat 2.5/0.5mg 3 Ml Ampul.Neb) 3 ml INHALE RQ4H WHILE AWAKE [facility] Last Admin: 03/05/25 19:36 Dose: 3 ml Documented By: VEL Apixaban (Apixaban 5 Mg Tablet) 10 mg PO BID [facility] Stop: 03/11/25 21:01 Last Admin: 03/05/25 20:24 Dose: 10 mg Documented By: NALINI Apixaban (Apixaban 5 Mg Tablet) 5 mg PO BID [facility] Benzocaine (Throat Lozenge, Medicated Lozenge) 1 lozenge MUCOUS MEM Q2H PRN PRN Reason: Sore Throat Calcium Carbonate (Calcium Carbonate 750 Mg Tab.Chew) 750 mg PO Q4H PRN PRN Reason: Heartburn Dextrose (Dextrose 50 % 25 Gm/50 Ml Syringe) 25 gm IVPUSH Q15M PRN; Protocol PRN Reason: per Hypoglycemia Standing Ord. Fluticasone Propionate (Fluticasone Propionate Nasal 16 Gm [place]) 1 spray NOSTRIL-B BID [facility] Last Admin: 03/05/25 20:23 Dose: 1 spray Documented By: NALINI Folic Acid (Folic Acid 1 Mg Tablet) 1 mg PO DAILY [facility] Last Admin: 03/05/25 09:29 Dose: 1 mg Documented By: JORGE Glucose (Glucose Gel 15 Gm Gel..Gram.) 15 gm PO Q15M PRN; Protocol PRN Reason: per Hypoglycemia Standing Ord. Guaifenesin/Dextromethorphan (Guaifenesin Dm 100/10/5 Ml 5 Ml Syrup) 5 ml PO Q4H PRN PRN Reason: Cough Insulin Human Lispro (Insulin Lispro 100 Unit/Ml 3 Ml Vial) 0 unit SUBCUT QIDACHS [facility]; Protocol Last Admin: 03/05/25 20:24 Dose: 4 unit Documented By: NALINI Levalbuterol HCl (Levalbuterol Hcl 1.25 Mg/3 Ml Vial.Neb) 1.25 mg INHALE Q4H PRN PRN Reason: Shortness of Breath/Wheezing Magnesium Hydroxide (Milk Of Magnesia 30 Ml Oral.Susp) 30 ml PO DAILY PRN PRN Reason: Constipation Melatonin (Melatonin 3 Mg Tablet) 6 mg PO BEDTIME PRN PRN Reason: Insomnia Last Admin: 03/05/25 20:24 Dose: 6 mg Documented By: NALINI Methylprednisolone Sodium Succinate (Methylprednisolone Sod Succ 40 Mg/Ml Vial) 40 mg IVPUSH Q12H [facility] Last Admin: 03/06/25 00:00 Dose: 40 mg Documented By: NALINI Nicotine (Nicotine 14 Mg Patch.Td24) 14 mg TRANSDERMA DAILY [facility] Last Admin: 03/05/25 09:33 Dose: Not Given Documented By: JORGE Non-Admin Reason: Patient Refused Sodium Chloride (0.9 % Sodium Chloride Flush 3 Ml Syringe) 3 ml IVFLUSH QSHIFT [facility] Last Admin: 03/05/25 20:25 Dose: 3 ml Documented By: NALINI Thiamine HCl (Thiamine Hcl 100 Mg Tablet) 100 mg PO DAILY [facility] Last Admin: 03/05/25 09:29 Dose: 100 mg Documented By: JORGE Labs 03/06/25 07:06 03/06/25 07:06 Labs: Laboratory Results - last 24 hr 03/05/25 03/05/25 03/05/25 07:30 11:36 16:22 POC Glucose 175 H 185 H 209 H 03/05/25 19:26 POC Glucose 229 H Microbiology Microbiology Results: Microbiology 03/04/25 14:28 Blood Culture - Preliminary Blood - Venous No growth after 24 hours. 03/04/25 14:28 Blood Culture - Preliminary Blood - Venous No growth after 24 hours. Assessment and Plan (1) Acute hypoxic respiratory failure: Status: Acute Assessment and Plan: 59-year-old female with history of type 2 diabetes, liver disease, ventral hernia, daily tobacco use, daily alcohol use who presents to the emergency department with shortness of breath found to have acute pulmonary embolism, lung mass, influenza a Acute respiratory failure with hypoxia Influenza a symptoms ongoing for nearly a week, tamiflu not likely to provide benefit symptomatic support Multifactorial due to influenza a, lung mass, asthma exacerbation, acute pulmonary embolism Continue supplemental oxygen, wean as tolerated Pt still desat with minimal ambulation Acute pulmonary embolism no evidence of right heart strain possibly due to lung mass ?malignancy - OP mx OAC Eliquis 10 bid x 7 days, then 5 bid Lung mass given smoking history concerning for malignancy will need outpatient follow up/biopsy Acute exacerbation of asthma IV steroids scheduled breathing treatments tobacco dependence Smoking cessation advised NRT alcohol dependence with risk for withdrawal denies h/o withdrawal and only one shot in the past 5-6 days chronic tremor. does not appear to be withdrawing at this time follow CIWA, if begins scoring would consider starting phenobarbitol protocol Supplementation with oral thiamine, folic acid Hypomagnesemia Replacing with IV mg and follow levels elevated LFTs due to underlying liver dz liver elastography from August 2024 showing compensated advanced liver dz downtrending thrombocytopenia possibly chronic due to etoh use/liver dz monitor closely in light of anticoagulation morbid obesity BMI 32.0 on monjouro, has lost 6 pounds T2DM SSI, POCs, ADA diet hold [employer] DVT prophylaxis-Eliquis Patient will likely require continued hospital stay for management of multiple acute medical issues contributing to acute respiratory failure requiring close cardiac and pulmonary monitoring as well as supplemental oxygen Which can not be achieved in a less acute setting Quality Stroke Does the patient have a stroke diagnosis?: No VTE Prior VTE?: No VTE Risk Level:: Medical - moderate - high VTE Device Contraindication: Treatment Not Indicated VTE Drug Contraindication: N/A - Med Ordered
[2025-03-06 07:46] LABS: Glucose, Whole Blood 177 mg/dL (60-115)
[2025-03-06 07:51] LABS: Alanine Aminotransferase 91 U/L (0-31); Albumin Level 3.8 g/dL (3.5-5.0); Alkaline Phosphatase 48 U/L (39-117); Anion Gap 13 (12-20); Aspartate Amino Transferase 52 U/L (5-31); Blood Urea Nitrogen 19 mg/dL (9-16); Calcium 9.3 mg/dL (8.4-10.2); Carbon Dioxide 28 mmol/L (22-29); Chloride 104 mmol/L (96-108); Creatinine Clr Calc Pharmacy 107.2; Estimated Glomerular Filt Rate > 60; Magnesium 2.1 mg/dL (1.6-2.6); Potassium 4.9 mmol/L (3.3-5.1); Sodium 140 mmol/L (135-145); Total Protein 6.3 g/dL (6.5-8.0)
[2025-03-06 07:53] LABS: Mean Corpuscular Volume 92.8 fL (80.0-98.0); NRBC Abs Auto 0.000 X10*3/uL (0.0-0.012); NRBC Pct Auto 0.0 /100WBC (0.0-0.2); PLT CLUMP 1; SCAN SMEAR FLAG 1
[2025-03-06 07:56] LABS: Hematocrit 42.5 % (37.0-47.0); Hemoglobin 14.1 g/dl (12.0-16.0); Imm Gran Abs Auto 0.06 X10*3/uL (0.00-0.03); Imm Gran Pct Auto 0.7 % (0.0-0.4); Lymphocytes Absolute Auto 0.8 X10*3/uL (1.2-4.9); Mean Corpuscular HGB Conc 33.2 g/dl (31.0-35.0); Mean Corpuscular Hemoglobin 30.8 pg (27.0-33.0); Red Blood Count 4.58 X10*6/uL (4.20-5.50)
[2025-03-06 08:05] LABS: Platelet Count 121 X10*3/uL (160-400); White Blood Count 9.0 X10*3/uL (4.8-10.8)
[2025-03-06] MEDS: Albuterol/Iprat 2.5/0.5MG 3 ML AMPUL.NEB INHALE ×4 (08:11→19:25)
[2025-03-06] MEDS: Nicotine 14 MG PATCH.TD24 TRANSDERMA (08:13)
[2025-03-06] MEDS: 0.9 % Sodium Chloride Flush 3 ML SYRINGE IVFLUSH ×3 (08:13→21:15)
[2025-03-06 11:42] LABS: Glucose, Whole Blood 214 mg/dL (60-115)
[2025-03-06 16:08] LABS: Glucose, Whole Blood 151 mg/dL (60-115)
[2025-03-06 20:51] LABS: Glucose, Whole Blood 294 mg/dL (60-115)
[2025-03-06] MEDS: Throat Lozenge, Medicated LOZENGE 1 LOZENGE MUCOUS MEM (21:13)
[2025-03-06] MEDS: guaiFENesin DM 100/10/5 ML 5 ML SYRUP PO (21:13)
[2025-03-06] MEDS: Milk of Magnesia 30 ML ORAL.SUSP PO (21:14)
[2025-03-07] VITALS (7 sets, daily range): BP systolic 140–151; BP diastolic 74–80; PULSE 71–113; RESP 16–20; TEMP 36.1–36.4; O2SAT 86–94
[2025-03-07 07:07] LABS: MANUAL DIFF FLAG NO
[2025-03-07 07:14] LABS: Hematocrit 43.3 % (37.0-47.0); Hemoglobin 14.5 g/dl (12.0-16.0); Imm Gran Abs Auto 0.10 X10*3/uL (0.00-0.03); Imm Gran Pct Auto 1.3 % (0.0-0.4); Lymphocytes Absolute Auto 0.5 X10*3/uL (1.2-4.9); Mean Corpuscular HGB Conc 33.5 g/dl (31.0-35.0); Mean Corpuscular Hemoglobin 31.1 pg (27.0-33.0); Mean Corpuscular Volume 92.9 fL (80.0-98.0); NRBC Abs Auto 0.000 X10*3/uL (0.0-0.012); NRBC Pct Auto 0.0 /100WBC (0.0-0.2); Platelet Count 123 X10*3/uL (160-400); Red Blood Count 4.66 X10*6/uL (4.20-5.50); White Blood Count 8.0 X10*3/uL (4.8-10.8)
[2025-03-07 07:31] LABS: Alanine Aminotransferase 143 U/L (0-31); Albumin Level 3.8 g/dL (3.5-5.0); Alkaline Phosphatase 61 U/L (39-117); Anion Gap 13 (12-20); Aspartate Amino Transferase 95 U/L (5-31); Blood Urea Nitrogen 21 mg/dL (9-16); Calcium 9.2 mg/dL (8.4-10.2); Carbon Dioxide 26 mmol/L (22-29); Chloride 104 mmol/L (96-108); Creatinine Clr Calc Pharmacy 107.2; Estimated Glomerular Filt Rate > 60; Magnesium 2.3 mg/dL (1.6-2.6); Potassium 5.0 mmol/L (3.3-5.1); Sodium 138 mmol/L (135-145); Total Protein 6.2 g/dL (6.5-8.0)
[2025-03-07] MEDS: Albuterol/Iprat 2.5/0.5MG 3 ML AMPUL.NEB INHALE ×2 (07:47→11:28)
[2025-03-07 08:04] LABS: Glucose, Whole Blood 235 mg/dL (60-115)
[2025-03-07] MEDS: Nicotine 14 MG PATCH.TD24 TRANSDERMA (08:20)
[2025-03-07] MEDS: 0.9 % Sodium Chloride Flush 3 ML SYRINGE IVFLUSH (08:23)
[2025-03-07 11:39] LABS: Glucose, Whole Blood 224 mg/dL (60-115)
--- NOTE | 2025-03-07 13:37 | P.DS_ITS ---
DS: Providers Provider Date of admission: 03/04/25 16:39 Date of discharge: 03/07/25 Primary care physician: Aakash Azar MD DS: Diagnosis Discharge Diagnosis (1) Acute hypoxic respiratory failure: Status: Acute DS: Summary Hospital Course Hospital Course: From admission HPI: Date of Service: 03/04/25 Attending physician on admission: Alcira Mejia Chief Complaint: shortness of breath This is a 59 year old female who presents to the ED with shortness of breath. Patient presents to the emergency department with nearly one-week history of shortness of breath. She reports initially she began having fever dry cough headache pain with coughing. After the 1st few days her fever resolved but she continued to have persistent cough and developed shortness of breath even at rest. She has been trying to use her inhalers but has been having difficulty even taking a big enough breath to use her inhalers at home. Today she presented to urgent care where she received oral prednisone and DuoNeb breathing treatment but based on physical exam and borderline oxygen saturation she was referred to the emergency department. On arrival in the emergency department she was hypertensive, tachycardic, tachypneic as well as hypoxic with an oxygen saturation of 87% on room air. She was placed on 4 L OxyMask. She received multiple breathing treatments as well as IV steroids. Magnesium levels noted to be low which was replaced with IV magnesium. Chest x-ray was unremarkable, she underwent CTA which showed a subtle filling defect in the segmental vessel to the right lower lobe suspicious for pulmonary embolism. In addition there was a solid mass in the anterior/superior mediastinum measuring 3.3 x 3.3 x 6.6 cm which was considered indeterminate but concerning for neoplastic etiology. Her serology was also positive for influenza A. Patient was also noted to be tremulous, she reports having chronic bilateral upper extremity tremor which runs in her family. She did however endorse drinking half a pt of alcohol every other day with her last drink several days ago with the exception of 1 shot last night. She denies any change in her tremors and denies history of alcohol withdrawal. She will be admitted for further management of acute respiratory failure. Hospital course: Pt was admitted to the hospital for acute hypoxic respiratory failure likely multifactorial: in the setting of acute pulmonary embolism, influenza type A infection, asthma exacerbation, and solid lung mass concerning for possible malignancy. Pt was started on Eliquis 10mg bid for PE, and treated with supplemental oxygen, IV steroids, and bronchodilator therapy for flu/asthma exacerbation. The pt was not started on Tamiflu as symptoms has been ongoing for the past week, and Tamiflu likely be of little benefit. Patient's symptoms improved with treatment, though she continued to require oxygen. Received a home O2 evaluation and she qualified for 1L at rest and 3L with ambulation/exertion. Pt will be discharged on Eliquis 10 mg b.i.d. x9 additional doses, then 5 mg b.i.d. for at least an additional 3 months. Pt also be discharged on prednisone 40 mg daily x4 days, Symbicort 1 inhalation b.i.d., guaifenesin, as well as thiamine 100 mg daily and folic acid 1 mg daily. Pt has been referred to [facility] pul[facility] for outpatient workup of lung mass, including possible lung biopsy. pt should also follow up with her PCP in 1 week for routine post hospitalization visit as well as to establish additional outpatient workup for lung mass. Pt should continue all of her other home medications. Additional details concerning hospital stay as indicated below. Acute pulmonary embolism no evidence of right heart strain possibly due to lung mass ?malignancy - OP mx OAC Eliquis 10 bid x 7 days, then 5 bid for at least 3 months Lung mass given smoking history concerning for malignancy will need outpatient follow up/biopsy Acute exacerbation of asthma IV steroids, switched to po at discharge scheduled breathing treatments continue home inhalers tobacco dependence Smoking cessation advised NRT alcohol dependence with risk for withdrawal denies h/o withdrawal and only one shot in the past 5-6 days chronic tremor. does not appear to be withdrawing at this time follow CIWA, if begins scoring would consider starting phenobarbitol protocol Supplementation with oral thiamine, folic acid Hypomagnesemia, resovled Replacing with IV mg and follow levels elevated LFTs due to underlying liver dz liver elastography from August 2024 showing compensated advanced liver dz downtrending thrombocytopenia possibly chronic due to etoh use/liver dz monitor closely in light of anticoagulation morbid obesity BMI 32.0 on monjouro, has lost 6 pounds T2DM SSI, POCs, ADA diet continue Mounjaro at discharge Time Attestation Discharge Coordination Time (in mins): 35 Quality: Safe Use of Opioids Does Pt have an Active Cancer Diagnosis on the Problem List?: No Quality: Stroke Does the patient have a stroke diagnosis?: No Physical Exam Exam: Exam: General: AOx3, no acute distress Resp: CTA bilaterally though diminished. NC in place. No respiratory distress. CVS: S1, S2, RRR GI: +BS, NT, no distention Skin: Warm, dry Neuro: Cranial nerves II-XII grossly intact bilaterally. Motor grossly intact bilaterally. Chronic upper extremity tremor Extremities: No edema Psych: Appropriate affect Vital Signs: Vital Signs: Last Vital Signs Temp 97.6 F 03/07/25 11:44 Pulse 96 03/07/25 11:44 Resp 20 03/07/25 11:44 BP 140/74 H 03/07/25 11:44 Pulse Ox 92 03/07/25 11:44 O2 Del Method Nasal Cannula 03/07/25 11:44 O2 Flow Rate 2 03/07/25 11:44 BMI result Body Mass Index 32.0 DS: Data Data Completed and Pending Labs on day of discharge: Laboratory Results - last 24 hr 03/06/25 03/06/25 03/07/25 15:40 20:40 06:24 WBC 8.0 RBC 4.66 Hgb 14.5 Hct 43.3 MCV 92.9 MCH 31.1 MCHC 33.5 RDW 13.0 Plt Count 123 L MPV 11.6 Immature Gran % (Auto) 1.3 H Neut % (Auto) 88.5 H Lymph % (Auto) 6.6 L Greer % (Auto) 3.3 Eos % (Auto) 0.0 Baso % (Auto) 0.3 Lymph # (Auto) 0.5 L Greer # (Auto) 0.3 Eos # (Auto) 0.0 Baso # (Auto) 0.0 Abs Immat Gran (auto) 0.10 H Absolute Neuts (auto) 7.1 Absolute Nucleated RBC 0.000 Nucleated RBC % (auto) 0.0 Sodium 138 Potassium 5.0 Chloride 104 Carbon Dioxide 26 Anion Gap 13 BUN 21 H Creatinine 0.63 Estim Creat Clear Calc 107.2 Estimated GFR > 60 POC Glucose 151 H 294 H Random Glucose 211 H Calcium 9.2 Magnesium 2.3 Total Bilirubin 0.5 AST 95 H ALT 143 H Alkaline Phosphatase 61 Total Protein 6.2 L Albumin 3.8 03/07/25 03/07/25 07:38 11:35 WBC RBC Hgb Hct MCV MCH MCHC RDW Plt Count MPV Immature Gran % (Auto) Neut % (Auto) Lymph % (Auto) Greer % (Auto) Eos % (Auto) Baso % (Auto) Lymph # (Auto) Greer # (Auto) Eos # (Auto) Baso # (Auto) Abs Immat Gran (auto) Absolute Neuts (auto) Absolute Nucleated RBC Nucleated RBC % (auto) Sodium Potassium Chloride Carbon Dioxide Anion Gap BUN Creatinine Estim Creat Clear Calc Estimated GFR POC Glucose 235 H 224 H Random Glucose Calcium Magnesium Total Bilirubin AST ALT Alkaline Phosphatase Total Protein Albumin Preliminary micro results at discharge 03/04/25 14:28 Blood Culture - Preliminary Blood - Venous No growth after 48 hours. 03/04/25 14:28 Blood Culture - Preliminary Blood - Venous No growth after 48 hours. Discharge Plan Discharge Anticipated Discharge Date/Time: 03/07/25 13:33 Patient Disposition: Home, Self-Care Discharge Diagnosis: Acute hypoxic respiratory failure in the setting acute pulmonary embolism Referrals: [facility] [Provider Group, Pulmonology] - 1 Week Referral Note: Pt with indeterminate solid lung mass on CTA of chest on 03/04/2025. Consideration for outpatient lung biopsy or additional workup with MRI. Aakash Azar MD [Primary Care Provider, Internal Medicine] - 1 Week Discharge Medications: New budesonide-formoterol [Symbicort] 160-4.5 mcg/actuation HFA aerosol inhaler 1 inh inhalation BID Qty: 10.2 0RF Rx Instructions: Take 1 inhalation twice a day for maintenance of asthma/COPD nicotine 14 mg/24 hr patch 24 hour 1 patch transdermal Q24H Qty: 28 0RF prednisone 20 mg tablet 40 mg PO DAILY Qty: 8 0RF Rx Instructions: Take 40 mg (2 tablets) daily for the next 4 days, 03/08-03/11 folic acid 1 mg tablet 1 mg PO DAILY Qty: 90 0RF codeine-guaifenesin 10-100 mg/5 mL liquid 5 ml PO Q6H Qty: 120 0RF Rx Instructions: Take 5ml every 6 hours as needed for cough. apixaban 5 mg tablet 5 mg PO BID Qty: 90 0RF Rx Instructions: Take 10mg (2 tablets) twice a day for the next 4 days, starting the evening of 03/07 and ending the evening of 03/11. After that take one tablet daily for at least the next 3 months. thiamine HCl (vitamin B1) 100 mg capsule 100 mg PO DAILY Qty: 90 0RF Rx Instructions: Take one tablet daily Continued atorvastatin 10 mg tablet 10 mg PO DAILY 90 Days Qty: 90 0RF budesonide-formoterol [Symbicort] 160-4.5 mcg/actuation HFA aerosol inhaler 1 inh inhalation BID PRN (Reason: Shortness Of Breath Or Wheezing) Mounjaro 2.5 mg/0.5 mL pen injector 2.5 mg subcut FR naproxen 250 mg Tablet 250 mg PO DAILY (DME) FreeStyle Lite Strips Strip See Rx Instructions .ROUTE .MEDSUPPLY Qty: 200 4RF Rx Instructions: DX: E11.9, test blood sugar 2 times a day, 90 days cetirizine [All Day Allergy (cetirizine)] 10 mg tablet 10 mg PO DAILY PRN (Reason: allergy symptoms) 90 Days Qty: 90 2RF fluticasone propionate [Flonase Allergy Relief] 50 mcg/actuation spray,suspension 1 spray intranasal Q12H 30 Days Qty: 16 2RF Rx Instructions: administer into each nostril albuterol sulfate 90 mcg/actuation HFA aerosol inhaler 2 puff inhalation Q6H PRN (Reason: shortness of breath or wheezing) 90 Days Qty: 8.5 3RF Discontinued azithromycin 250 mg tablet See Rx Instructions PO .COMPLEX Qty: 6 0RF Rx Instructions: For 250 mg dose pack: take 500 mg today (day 1), then 250 mg for 4 days (days 2-5) PO Discharge Orders: Discharge Order (Routine); Ordered 03/07/25 Ordered By: Yani Naylor Activity on Discharge: As tolerated Stand Alone Forms: Patient Portal Discharge page, Work/School Release Print Language: Honduran Care Plan Goals: See below Health Concerns: Acute hypoxic respiratory failure Pulmonary embolism Lung mass Influenza a Plan of Treatment: You were admitted to the hospital for acute hypoxic respiratory failure that was likely multifactorial: Secondary to pulmonary embolism, influenza type a, asthma exacerbation, and also possible lung mass. You were started on Eliquis for pulmonary embolism, and treated with supplemental oxygen, steroids, and breathing treatments. You had improvement to your difficulty breathing and SOB, though she will continue to require oxygen during her hospital stay. You were seen and evaluated by respiratory and currently qualified for home oxygen. -- For pulmonary embolism, take Eliquis 10 mg (2 tablets) twice a day for the next 5 days, started in the evening of 03/07 and ending the evening of 03/11. After that you are to take Eliquis 5 mg twice a day for at least the next 3 months. Final duration of medication will be determined by PCP and/or pulmonology. -- For asthma/COPD, he will be prescribed a short course of prednisone 40 mg x 4 days, 03/08-03/11. Will also be sent home with a new prescription for your Symbicort, which you should take 1 puff twice a day for daily maintenance. -- For influenza A, you should use supportive therapy with plenty of rest and fluids. You will be prescribed guaifenesin codeine for cough. -- For lung mass noted on CTA of chest, it is of indeterminate origin, however malignancy can not be ruled out. You has been referred to [facility] pulmonology for evaluation and to begin outpatient workup which could include lung biopsy. -- For hypoxia, you qualified for home oxygen: 1L at rest and 3L with ambu lation/exertion. -- For nicotine dependence, your strongly encouraged to abstain from smoking, and will be prescribed nicotine patches to help you in that journey. -- you will also be prescribed thiamine 100 mg daily and folic acid 1 mg daily -- should continue all of your other home medications -- follow up PCP in 1 week for routine post hospitalization visit as well as to initiate additional outpatient workup for lung mass. Assessment: See discharge summary
--- NOTE | 2025-03-07 14:49 | MHC.CM.PN ---
PT MEDICALLY CLEARED FOR DC HOME SELF CARE AND NEW [facility] FOR HOME O2 1L AT REST AND 3L W/ACTIVITY, PT WILL SELF TRANSPORT
--- NOTE | 2025-03-13 07:12 | P.CDIM_ITS ---
PROVIDER RESPONSE TEXT: To clarify, the appropriate diagnosis supported by the clinical indicators: Mild intermittent QUERY TEXT: PHYSICIAN'S DOCUMENTATION REQUEST Date of Query: 03/08/2025 07:23 AM EST Patient Name: Divya Willis Admit Date: 03/04/2025 Dear Yani CUEVA, RETROSPECTIVE QUERY A review of the medical record indicates additional documentation may be needed. Please review below and update the documentation accordingly. The diagnosis of asthma was documented in the record: Clinical indicators: Discharge Summary 03/07/25 - Admit ED with shortness of breath, coughing, was using inhalers but has been having difficulty even taking a big enough breath. Urgent care given oral Prednisone and DuoNeb breathing treatment. Referred to Ed was hypoxic with an ox saturation of 87% room air. Acute exacerbation of Asthma. IV steroids, switched to po at discharge. Scheduled breathing treatments. Continue home inhalers. Based on the above, please clarify in the Progress Notes further specificity regarding the type of Asthma: Mild intermittent Mild persistent Moderate persistent Severe persistent Exercise induced Other (explain) Clinically unable to determine (explain) Thank you, Faby Fajardo, CCS, CDIS Use of terms such as suspected, likely, concern for, or probable (associated with a specific diagnosis that is being evaluated, monitored, or treated as if it exists) are acceptable and can be coded in the inpatient setting, when documented at the time of discharge. Please use your independent medical judgment in providing your response. THIS QUERY IS PART OF THE PERMANENT MEDICAL RECORD
== END 2025-03-07 15:14 | disposition home or self-care (01) | DRG 141 ==
LOC: HO.ED 13:40 → HO.EDOVER 16:44 → HO.IMC 17:07
PROVIDERS: Physician Assistant Medical; Student in an Organized Health Care Education/Training Program; Admitting Provider Physician Assistant Medical; Emergency Provider Emergency Medicine; PCP Family Medicine; Visit Provider Student in an Organized Health Care Education/Training Program
DX: J45.21 Mild intermittent asthma with (acute) exacerbation (principal); I26.99 Other pulmonary embolism without acute cor pulmonale; J96.01 Acute respiratory failure with hypoxia; E11.9 Type 2 diabetes mellitus without complications; D69.59 Other secondary thrombocytopenia; E66.01 Morbid (severe) obesity due to excess calories; E83.42 Hypomagnesemia; F10.20 Alcohol dependence, uncomplicated; F17.210 Nicotine dependence, cigarettes, uncomplicated; Z71.6 Tobacco abuse counseling; J10.1 Influenza due to other identified influenza virus with other respiratory manifestations; R91.8 Other nonspecific abnormal finding of lung field; K76.9 Liver disease, unspecified; Z20.822 Contact with and (suspected) exposure to COVID-19; Z68.32 Body mass index [BMI] 32.0-32.9, adult; Z71.3 Dietary counseling and surveillance; Z79.51 Long term (current) use of inhaled steroids; Z79.899 Other long term (current) drug therapy
CPT/HCPCS: 36415; 71045; 71275; 80048; 80053; 80307; 81003; 82803; 82947; 83605; 83735; 84484; 85025; 85610; 87040; 87637; 93005; 94640; 97161; 97165; 99285; J0696; J1650; J2919; J3475; Q9967

== ENCOUNTER → 2025-03-04 13:15 | Outpatient (BNV) | payer OTHER, SELFPAY | PROVIDERS: Emergency Provider Emergency Medicine; PCP Family Medicine; Visit Provider Internal Medicine Cardiovascular Disease | DX: R00.0 Tachycardia, unspecified (principal) | CPT/HCPCS: 93010 ==

== ENCOUNTER → 2025-03-04 16:39 | Outpatient (BNV) | payer OTHER, SELFPAY | PROVIDERS: Admitting Provider Physician Assistant Medical; Emergency Provider Emergency Medicine; PCP Family Medicine; Visit Provider Physician Assistant Medical | DX: J96.01 Acute respiratory failure with hypoxia (principal) | CPT/HCPCS: 99223; 99233 ==